=== PATIENT | male | born 1970 | race Caucasian/White ===

== ENCOUNTER 2017-12-24 14:19 | Emergency (ER) | payer OTHER, SELFPAY ==
[~2017-12-24] VITALS: Ht 170.2 cm; Wt 92.0 kg
[~2017-12-24 14:19] MED LIST: ANTIDEPRESSANT; BENZ1; CLON1 PO; HALO2; HYDACE5 PO; NAPR550 PO; QUET200; TRAZ100; VENL75
[2017-12-24 16:16] LABS: BASOPHILS ABSOLUTE AUTO 0.04 K/mm3 (0.00-0.23); BASOPHILS PERCENT AUTO 1 % (0-2); EOSINOPHILS PERCENT AUTO 3 % (0-6); Hemoglobin 9.9 g/dL (13.5-17.5); IMMATURE GRAN ABSOLUTE AUTO 0.17 K/mm3 (0.00-0.10); IMMATURE GRAN PERCENT AUTO 2 % (0-1); LYMPHOCYTES PERCENT AUTO 19 % (21-46); MONOCYTES ABSOLUTE AUTO 0.79 K/mm3 (0.16-1.47); MONOCYTES PERCENT AUTO 10 % (4-13); Mean Corpuscular HGB 25.8 pg (26.0-34.0); Mean Corpuscular HGB Conc 31.9 g/dL (31.5-36.5); Mean Corpuscular Volume 81 fL (80-100); NEUTROPHILS ABSOLUTE AUTO 5.17 K/mm3 (1.96-9.15); NEUTROPHILS PERCENT AUTO 66 % (41-73); Platelet Count 146 K/mm3 (150-400); RDW Coefficient Variation 18.1 % (11.7-14.2); RDW Standard Deviation 53.5 fL (35.1-46.3); Red Blood Cell Count 3.84 M/mm3 (4.30-5.90); White Blood Cell Count 7.87 K/mm3 (4.00-11.30)
[2017-12-24 16:38] LABS: Alanine Aminotransfer (ALT/SGP 16 U/L (12-78); Albumin, Blood 3.1 g/dL (3.4-5.0); Albumin/Globulin Ratio 0.7 (0.8-1.8); Alk Phos 226 U/L (50-136); Anion Gap 8 mmol/L (6-16); Aspartate Aminotrans (AST/SGOT 23 U/L (12-37); Bilirubin, Total 0.6 mg/dL (0.1-1.0); Blood Urea Nitrogen 6 mg/dL (8-24); CO2, Blood 22 mmol/L (21-32); Calcium, Blood 8.5 mg/dL (8.5-10.1); Chloride, Blood 110 mmol/L (98-108); Creatinine, Blood 0.75 mg/dL (0.60-1.20); Globulin, Blood 4.7 g/dL (2.2-4.0); Glomerular Filtration Rate >60 (60-); Glucose, Blood 109 mg/dL (70-99); Potassium, Blood 3.2 mmol/L (3.5-5.5); Sodium, Blood 140 mmol/L (136-145); Total Protein, Blood 7.8 g/dL (6.4-8.2)
[2017-12-24] MEDS ORDERED: FURO20 PO (17:39)
[2017-12-24] MEDS ORDERED: PRAV20 PO (17:40)
[2017-12-24] MEDS ORDERED: VENL150ER PO (17:40)
[2017-12-24] MEDS ORDERED: LISI20 PO (17:40)
[2017-12-24] MEDS ORDERED: Prilosec Otc20 MG (17:41)
[2017-12-24] MEDS ORDERED: Aspir-Trin325 MG PO (17:42)
== END 2017-12-24 20:07 | disposition home or self-care (01) ==
LOC: ER 14:19
PROVIDERS: Emergency Medicine
DX: K42.9 Umbilical hernia without obstruction or gangrene (principal); R18.8 Other ascites; F32.9 Major depressive disorder, single episode, unspecified; F20.9 Schizophrenia, unspecified; F17.210 Nicotine dependence, cigarettes, uncomplicated; Z79.899 Other long term (current) drug therapy
CPT/HCPCS: 36415; 74177; 76705; 80053; 83690; 85025; 93005; 93010; 99284; Q9967

== ENCOUNTER 2018-01-02 13:55 | Day surgery (SDC) | payer OTHER, SELFPAY ==
[~2018-01-02] VITALS: Ht 170.2 cm; Wt 93.0 kg
[~2018-01-02 13:55] MED LIST changes: +Aspir-Trin325 MG PO; +CLOZ100 PO; +DIPH50 PO; +FURO20 PO; +HYDPAM25 PO; +LISI20 PO; +Nitrostat0.3 MG SL; +PRAV20 PO; +Prilosec Otc20 MG PO; +TOPI50 PO; +VENL150ER PO
== END 2018-01-02 22:38 | disposition home or self-care (01) ==
LOC: ORSCMMR 13:55 → ORD 15:00 → ORSCMMR 15:00
PROVIDERS: Internal Medicine Gastroenterology
PROC: 06L38CZ Occlusion of Esophageal Vein with Extraluminal Device, Via Natural or Artificial Opening Endoscopic (ICD-10-PCS; principal; 2018-01-02 15:00)
DX: K70.31 Alcoholic cirrhosis of liver with ascites (principal); I85.00 Esophageal varices without bleeding; Z79.899 Other long term (current) drug therapy; Z86.19 Personal history of other infectious and parasitic diseases; I10 Essential (primary) hypertension; J45.909 Unspecified asthma, uncomplicated; F25.1 Schizoaffective disorder, depressive type; F17.210 Nicotine dependence, cigarettes, uncomplicated
CPT/HCPCS: J2250; J7120

== ENCOUNTER 2018-01-08 20:27 | Day surgery (SDC) | payer OTHER ==
[2018-01-08 10:49] LABS: International Normalized Ratio 1.2; Prothrombin Time Results 12.5 Sec (9.7-11.5)
[2018-01-08 13:08] LABS: Body Fluid WBC Count 520 /mm3 (0-999)
[2018-01-08 13:17] LABS: Albumin, Body Fluid 1.6 g/dL; Protein, Body Fluid 3.3 g/dL
[2018-01-08 13:28] LABS: RBC Count, Body Fluid 373 /mm3 (0-0)
[2018-01-08 13:34] LABS: Appearance, Body Fluid Hazy (Clear); Color, Body Fluid Yellow (None-Yellow)
[2018-01-08 15:36] LABS: Total Cell Count, Body Fluid 100
== END 2018-01-31 23:13 | disposition home or self-care (01) ==
LOC: US 20:27
PROVIDERS: Internal Medicine Gastroenterology
PROC: 0W9G3ZZ Drainage of Peritoneal Cavity, Percutaneous Approach (ICD-10-PCS; principal; 2018-01-08)
DX: K70.31 Alcoholic cirrhosis of liver with ascites (principal); K70.30 Alcoholic cirrhosis of liver without ascites
CPT/HCPCS: 36415; 49083; 76705; 82042; 84157; 85610; 85730; 87070; 87205; 88108; 89051

== ENCOUNTER 2018-02-05 00:42 | Day surgery (SDC) | payer OTHER, SELFPAY | END 2018-02-05 22:43 | disposition home or self-care (01) | LOC: US 00:42 → ATC 00:42 → US 15:00 → ATC 22:43 | PROC: 0W9G3ZZ Drainage of Peritoneal Cavity, Percutaneous Approach (ICD-10-PCS; principal; 2018-02-05) | DX: K70.31 Alcoholic cirrhosis of liver with ascites (principal) | CPT/HCPCS: 49083 ==

== ENCOUNTER 2018-03-21 12:44 | Inpatient (IN) | payer OTHER, SELFPAY ==
[~2018-03-21] VITALS: Ht 170.2 cm; Wt 78.4 kg
[~2018-03-21 12:44] MED LIST changes: +NADO40
[2018-03-21 13:15] LABS: BASOPHILS ABSOLUTE AUTO 0.04 K/mm3 (0.00-0.23); BASOPHILS PERCENT AUTO 1 % (0-2); EOSINOPHILS PERCENT AUTO 1 % (0-6); Hematocrit 30.9 % (37.0-53.0); Hemoglobin 10.3 g/dL (13.5-17.5); IMMATURE GRAN ABSOLUTE AUTO 0.08 K/mm3 (0.00-0.10); IMMATURE GRAN PERCENT AUTO 1 % (0-1); LYMPHOCYTES ABSOLUTE AUTO 1.42 K/mm3 (0.84-5.20); LYMPHOCYTES PERCENT AUTO 18 % (21-46); MONOCYTES ABSOLUTE AUTO 0.75 K/mm3 (0.16-1.47); MONOCYTES PERCENT AUTO 9 % (4-13); Mean Corpuscular HGB 25.8 pg (26.0-34.0); Mean Corpuscular HGB Conc 33.3 g/dL (31.5-36.5); Mean Corpuscular Volume 77 fL (80-100); Mean Platelet Volume 10.7 fL (9.1-12.4); NEUTROPHILS ABSOLUTE AUTO 5.74 K/mm3 (1.96-9.15); NEUTROPHILS PERCENT AUTO 71 % (41-73); Platelet Count 112 K/mm3 (150-400); RDW Coefficient Variation 18.9 % (11.7-14.2); RDW Standard Deviation 52.8 fL (35.1-46.3); Red Blood Cell Count 3.99 M/mm3 (4.30-5.90); White Blood Cell Count 8.13 K/mm3 (4.00-11.30)
[2018-03-21 13:43] LABS: Alanine Aminotransfer (ALT/SGP 26 U/L (12-78); Albumin, Blood 3.7 g/dL (3.4-5.0); Albumin/Globulin Ratio 0.8 (0.8-1.8); Alk Phos 179 U/L (50-136); Anion Gap 12 mmol/L (6-16); Aspartate Aminotrans (AST/SGOT 23 U/L (12-37); Bilirubin, Total 0.7 mg/dL (0.1-1.0); Blood Urea Nitrogen 32 mg/dL (8-24); Bun/Creatinine Ratio 13.3 (12.0-20.0); CO2, Blood 19 mmol/L (21-32); Calcium, Blood 8.8 mg/dL (8.5-10.1); Chloride, Blood 106 mmol/L (98-108); Creatinine, Blood 2.41 mg/dL (0.60-1.20); Globulin, Blood 4.6 g/dL (2.2-4.0); Glomerular Filtration Rate 31 (60-); Glucose, Blood 105 mg/dL (70-99); Sodium, Blood 137 mmol/L (136-145); Total Protein, Blood 8.3 g/dL (6.4-8.2); Troponin I <0.015 ng/mL (0.000-0.040)
[2018-03-21] MEDS ORDERED: LORA2 PO (15:35)
[2018-03-21] MEDS ORDERED: SPIR25 PO (15:36)
[2018-03-21 15:41] LABS: Thyroid Stimulating Hormone 0.429 uIU/mL (0.360-4.800)
[2018-03-21] MEDS ORDERED: CLOZAPINE PO (16:37)
[2018-03-22 03:59] LABS: International Normalized Ratio 1.21; Prothrombin Time Results 12.3 Sec (9.7-11.5)
[2018-03-22 04:14] LABS: Albumin, Blood 3.2 g/dL (3.4-5.0); Albumin/Globulin Ratio 0.9 (0.8-1.8); Bilirubin, Total 0.9 mg/dL (0.1-1.0); Bun/Creatinine Ratio 18.6 (12.0-20.0); Calcium, Blood 8.3 mg/dL (8.5-10.1); Creatinine, Blood 1.4 mg/dL (0.60-1.20); Globulin, Blood 3.6 g/dL (2.2-4.0); Potassium, Blood 3.1 mmol/L (3.5-5.5); Total Protein, Blood 6.8 g/dL (6.4-8.2)
[2018-03-23 04:21] LABS: Hematocrit 25.9 % (37.0-53.0); Hemoglobin 8.5 g/dL (13.5-17.5); Mean Corpuscular HGB 25.7 pg (26.0-34.0); Mean Corpuscular HGB Conc 32.8 g/dL (31.5-36.5); Mean Corpuscular Volume 78 fL (80-100); Platelet Count 94 K/mm3 (150-400); RDW Coefficient Variation 19.3 % (11.7-14.2); RDW Standard Deviation 54.5 fL (35.1-46.3); Red Blood Cell Count 3.31 M/mm3 (4.30-5.90); White Blood Cell Count 9.34 K/mm3 (4.00-11.30)
[2018-03-23 04:45] LABS: BAND PERCENT MAN 4 % (0-8); BASOPHILS PERCENT MAN 0 % (0-2); EOSINOPHILS ABSOLUTE MAN 0.09 K/mm3 (0.00-0.68); EOSINOPHILS PERCENT MAN 1 % (0-6); LYMPHOCYTES ABSOLUTE MAN 1.02 K/mm3 (0.84-5.20); LYMPHOCYTES PERCENT MAN 11 % (21-46); MONOCYTES ABSOLUTE MAN 0.56 K/mm3 (0.16-1.47); MONOCYTES PERCENT MAN 6 % (4-13); MYELOCYTE ABSOLUTE MAN 0.09 K/mm3 (0.00-0.00); MYELOCYTE PERCENT MAN 1 % (0-0); NEUTROPHILS ABSOLUTE MAN 7.56 K/mm3 (1.96-9.15); SEG NEUTROPHILS PERCENT MAN 77 % (41-73); TOTAL CELLS COUNTED 100
[2018-03-23 04:46] LABS: Magnesium, Blood 1.5 mg/dL (1.6-2.4)
[2018-03-23 04:47] LABS: Alanine Aminotransfer (ALT/SGP 14 U/L (12-78); Albumin, Blood 2.9 g/dL (3.4-5.0); Albumin/Globulin Ratio 0.7 (0.8-1.8); Alk Phos 138 U/L (50-136); Anion Gap 8 mmol/L (6-16); Aspartate Aminotrans (AST/SGOT 18 U/L (12-37); Bilirubin, Total 0.7 mg/dL (0.1-1.0); Blood Urea Nitrogen 18 mg/dL (8-24); Bun/Creatinine Ratio 16.4 (12.0-20.0); CO2, Blood 22 mmol/L (21-32); Calcium, Blood 8.7 mg/dL (8.5-10.1); Chloride, Blood 113 mmol/L (98-108); Glomerular Filtration Rate >60 (60-); Glucose, Blood 125 mg/dL (70-99); Potassium, Blood 4.3 mmol/L (3.5-5.5); Sodium, Blood 143 mmol/L (136-145); Total Protein, Blood 6.9 g/dL (6.4-8.2)
[2018-03-23] MEDS ORDERED: Tylenol325 MG PO (12:28)
[2018-03-23] MEDS ORDERED: BISA5EC PO (12:29)
[2018-03-23] MEDS ORDERED: Hydrocodone-Ap1 EA20 PO (12:30)
[2018-03-23] MEDS ORDERED: POTA10T PO (12:31)
[2018-03-23] MEDS ORDERED: XARELTO10 MG PO (12:33)
[2018-03-23] MEDS ORDERED: CEPH500 PO (12:51)
[2018-03-25 14:15] LABS: A/G RATIO 1.1 (0.7-1.7); ALBUMIN 3.9 g/dL (2.9-4.4); ALPHA-1-GLOBULIN 0.2 g/dL (0.0-0.4); ALPHA-2-GLOBULIN 0.6 g/dL (0.4-1.0); GAMMA GLOBULIN 1.7 g/dL (0.4-1.8); GLOBULIN, TOTAL 3.6 g/dL (2.2-3.9); M-SPIKE Not Observed g/dL (Not Observed); PROTEIN, TOTAL, SERUM 7.5 g/dL (6.0-8.5)
== END 2018-03-23 15:03 | disposition home or self-care (01) | DRG 493 ==
LOC: ER 12:44 → MEDS 15:10 → SURS 15:10
PROVIDERS: Emergency Medicine; Internal Medicine; Orthopaedic Surgery
PROC: 0QSJ04Z Reposition Right Fibula with Internal Fixation Device, Open Approach (ICD-10-PCS; 2018-03-22)
PROC: 0QSG04Z Reposition Right Tibia with Internal Fixation Device, Open Approach (ICD-10-PCS; principal; 2018-03-22 12:30)
DX: S82.391A Other fracture of lower end of right tibia, initial encounter for closed fracture (principal); N17.9 Acute kidney failure, unspecified; I85.10 Secondary esophageal varices without bleeding; S82.491A Other fracture of shaft of right fibula, initial encounter for closed fracture; K70.30 Alcoholic cirrhosis of liver without ascites; I10 Essential (primary) hypertension; F25.9 Schizoaffective disorder, unspecified; B18.2 Chronic viral hepatitis C; D69.6 Thrombocytopenia, unspecified; F32.9 Major depressive disorder, single episode, unspecified; J45.909 Unspecified asthma, uncomplicated; E78.5 Hyperlipidemia, unspecified; W19.XXXA Unspecified fall, initial encounter; F17.210 Nicotine dependence, cigarettes, uncomplicated
CPT/HCPCS: 29515; 36415; 73610; 76770; 80053; 83735; 84132; 84443; 84484; 85025; 85610; 93005; 93010; 94762; 96361; 96374; 96376; 97116; 97161; 97530; 99285; C1713; C9113; G8978; G8979; J0330; J0690; J1100; J1650; J2250; J2370; J2405; J2710; J3010; J3370; J3475; J3480; J7030; J7120

== ENCOUNTER 2018-05-10 13:37 | Day surgery (SDC) | payer OTHER, SELFPAY ==
[~2018-05-10 13:37] MED LIST changes: +BISA5EC PO; +CEPH500 PO; +CIPR500 PO; +CLOZAPINE PO; +FOLI1 PO; +Hydrocodone-Ap1 EA20 PO; +LACT10SY PO; +LORA2 PO; +NEOM500 PO; +NICO21TP TOP; +OLAN5 PO; +OXYC5 PO; +POTA10T PO; +SPIR25 PO; +THIA100 PO; +Tylenol325 MG PO; +XARELTO10 MG PO
== END 2018-05-10 22:48 | disposition home or self-care (01) ==
LOC: US 13:37
PROC: 0W9G3ZZ Drainage of Peritoneal Cavity, Percutaneous Approach (ICD-10-PCS; principal; 2018-05-10)
DX: K70.31 Alcoholic cirrhosis of liver with ascites (principal)
CPT/HCPCS: 49083

== ENCOUNTER 2018-05-28 09:46 | Day surgery (SDC) | payer OTHER ==
[~2018-05-28 09:46] MED LIST changes: +RISP1
== END 2018-05-28 22:59 | disposition home or self-care (01) ==
LOC: US 09:46
PROC: 0W9G3ZZ Drainage of Peritoneal Cavity, Percutaneous Approach (ICD-10-PCS; principal; 2018-05-28)
DX: K70.31 Alcoholic cirrhosis of liver with ascites (principal); K70.11 Alcoholic hepatitis with ascites
CPT/HCPCS: 49083

== ENCOUNTER 2018-07-17 08:50 | Day surgery (SDC) | payer OTHER ==
[~2018-07-17 08:50] MED LIST changes: -RISP1; +RISP1 PO
== END 2018-07-17 12:09 | disposition home or self-care (01) ==
LOC: US 08:50
PROC: 0W9G3ZZ Drainage of Peritoneal Cavity, Percutaneous Approach (ICD-10-PCS; principal; 2018-07-17)
DX: K70.11 Alcoholic hepatitis with ascites (principal)
CPT/HCPCS: 49083; 96365; P9041

== ENCOUNTER 2018-07-18 13:57 | Inpatient (IN) | payer OTHER ==
[~2018-07-18] VITALS: Ht 170.2 cm; Wt 77.1 kg
[2018-07-18 14:56] LABS: BASOPHILS ABSOLUTE AUTO 0.02 K/mm3 (0.00-0.23); BASOPHILS PERCENT AUTO 0 % (0-2); EOSINOPHILS ABSOLUTE AUTO 0.11 K/mm3 (0.00-0.68); EOSINOPHILS PERCENT AUTO 1 % (0-6); Hematocrit 32.1 % (37.0-53.0); Hemoglobin 9.9 g/dL (13.5-17.5); IMMATURE GRAN PERCENT AUTO 1 % (0-1); LYMPHOCYTES PERCENT AUTO 11 % (21-46); MONOCYTES ABSOLUTE AUTO 1.18 K/mm3 (0.16-1.47); MONOCYTES PERCENT AUTO 9 % (4-13); Mean Corpuscular HGB 23.6 pg (26.0-34.0); Mean Corpuscular HGB Conc 30.8 g/dL (31.5-36.5); Mean Corpuscular Volume 76 fL (80-100); Mean Platelet Volume 10.3 fL (9.1-12.4); NEUTROPHILS PERCENT AUTO 78 % (41-73); Platelet Count 146 K/mm3 (150-400); RDW Coefficient Variation 17.9 % (11.7-14.2); RDW Standard Deviation 49.3 fL (35.1-46.3); White Blood Cell Count 13.31 K/mm3 (4.00-11.30)
[2018-07-18 15:13] LABS: Alanine Aminotransfer (ALT/SGP 15 U/L (12-78); Albumin, Blood 3.1 g/dL (3.4-5.0); Albumin/Globulin Ratio 0.8 (0.8-1.8); Alk Phos 180 U/L (50-136); Anion Gap 12 mmol/L (6-16); Aspartate Aminotrans (AST/SGOT 16 U/L (12-37); Bilirubin, Total 0.7 mg/dL (0.1-1.0); Blood Urea Nitrogen 8 mg/dL (8-24); CO2, Blood 20 mmol/L (21-32); Calcium, Blood 8.3 mg/dL (8.5-10.1); Chloride, Blood 105 mmol/L (98-108); Creatinine, Blood 0.89 mg/dL (0.60-1.20); Globulin, Blood 3.7 g/dL (2.2-4.0); Glomerular Filtration Rate >60 (60-); Glucose, Blood 108 mg/dL (70-99); Potassium, Blood 3.4 mmol/L (3.5-5.5); Sodium, Blood 137 mmol/L (136-145); Total Protein, Blood 6.8 g/dL (6.4-8.2)
[2018-07-18 15:19] LABS: Troponin I <0.015 ng/mL (0.000-0.040)
[2018-07-19 05:11] LABS: BASOPHILS ABSOLUTE AUTO 0.03 K/mm3 (0.00-0.23); BASOPHILS PERCENT AUTO 0 % (0-2); EOSINOPHILS ABSOLUTE AUTO 0.11 K/mm3 (0.00-0.68); EOSINOPHILS PERCENT AUTO 2 % (0-6); Hematocrit 29.9 % (37.0-53.0); Hemoglobin 9.4 g/dL (13.5-17.5); IMMATURE GRAN ABSOLUTE AUTO 0.06 K/mm3 (0.00-0.10); IMMATURE GRAN PERCENT AUTO 1 % (0-1); LYMPHOCYTES ABSOLUTE AUTO 1.14 K/mm3 (0.84-5.20); LYMPHOCYTES PERCENT AUTO 15 % (21-46); MONOCYTES ABSOLUTE AUTO 0.91 K/mm3 (0.16-1.47); MONOCYTES PERCENT AUTO 12 % (4-13); Mean Corpuscular HGB Conc 31.4 g/dL (31.5-36.5); Mean Corpuscular Volume 77 fL (80-100); Mean Platelet Volume 9.4 fL (9.1-12.4); NEUTROPHILS PERCENT AUTO 70 % (41-73); Platelet Count 123 K/mm3 (150-400); RDW Coefficient Variation 17.6 % (11.7-14.2); RDW Standard Deviation 49.1 fL (35.1-46.3); Red Blood Cell Count 3.91 M/mm3 (4.30-5.90); White Blood Cell Count 7.55 K/mm3 (4.00-11.30)
[2018-07-19 05:21] LABS: International Normalized Ratio 1.09; Prothrombin Time Results 11.2 Sec (9.7-11.5)
[2018-07-19 05:39] LABS: Alanine Aminotransfer (ALT/SGP 13 U/L (12-78); Albumin, Blood 2.8 g/dL (3.4-5.0); Albumin/Globulin Ratio 0.8 (0.8-1.8); Alk Phos 156 U/L (50-136); Anion Gap 11 mmol/L (6-16); Aspartate Aminotrans (AST/SGOT 12 U/L (12-37); Bilirubin, Total 0.7 mg/dL (0.1-1.0); Blood Urea Nitrogen 10 mg/dL (8-24); Bun/Creatinine Ratio 12.5 (12.0-20.0); CO2, Blood 20 mmol/L (21-32); Calcium, Blood 8.1 mg/dL (8.5-10.1); Chloride, Blood 106 mmol/L (98-108); Globulin, Blood 3.4 g/dL (2.2-4.0); Glomerular Filtration Rate >60 (60-); Glucose, Blood 111 mg/dL (70-99); Sodium, Blood 137 mmol/L (136-145); Total Protein, Blood 6.2 g/dL (6.4-8.2)
[2018-07-19 12:16] LABS: Protein, Body Fluid 2.4 g/dL
[2018-07-19 12:17] LABS: Automated BF WBC Count 0.354 K/mm3 (0-999); Body Fluid WBC Count 354 /mm3 (0-999)
[2018-07-19 12:26] LABS: Appearance, Body Fluid Clear (Clear); Color, Body Fluid Yellow (None-Yellow)
[2018-07-19 12:50] LABS: Total Cell Count, Body Fluid 100
[2018-07-19 13:46] LABS: RBC Count, Body Fluid 437 /mm3 (0-0)
[2018-07-19 14:43] LABS: Adenovirus F 40/41 Not Detected (NOT DETECT); Astrovirus Not Detected (NOT DETECT); Campylobacter Sp Not Detected (NOT DETECT); Cryptosporidium Not Detected (NOT DETECT); Cyclospora Cayetanensis Not Detected (NOT DETECT); E. Coli O157 Not Detected (NOT DETECT); Entamoeba Histolytica Not Detected (NOT DETECT); Enteroaggregative E. coli-EAEC Not Detected (NOT DETECT); Enteropathogenic E. coli-EPEC Not Detected (NOT DETECT); Enterotoxigenic E. coli-ETEC Not Detected (NOT DETECT); Norovirus GI/GII Not Detected (NOT DETECT); Plesiomonas Shigelloides Not Detected (NOT DETECT); Rotavirus A Not Detected (NOT DETECT); Salmonella Sp Not Detected (NOT DETECT); Sapovirus Not Detected (NOT DETECT); Shiga Toxin-prod E. coli-STEC Not Detected (NOT DETECT); Shigella/Enteroin E. coli-EIEC Not Detected (NOT DETECT); Vibrio Cholerae Not Detected (NOT DETECT); Vibrio Sp Not Detected (NOT DETECT); Yersinia Enterocolitica Not Detected (NOT DETECT)
[2018-07-19 16:42] LABS: Giardia Lamblia Detected (NOT DETECT)
[2018-07-20 05:20] LABS: BASOPHILS ABSOLUTE AUTO 0.02 K/mm3 (0.00-0.23); BASOPHILS PERCENT AUTO 0 % (0-2); EOSINOPHILS ABSOLUTE AUTO 0.12 K/mm3 (0.00-0.68); EOSINOPHILS PERCENT AUTO 2 % (0-6); Hematocrit 30.3 % (37.0-53.0); Hemoglobin 9.4 g/dL (13.5-17.5); IMMATURE GRAN ABSOLUTE AUTO 0.05 K/mm3 (0.00-0.10); IMMATURE GRAN PERCENT AUTO 1 % (0-1); LYMPHOCYTES ABSOLUTE AUTO 1.13 K/mm3 (0.84-5.20); LYMPHOCYTES PERCENT AUTO 15 % (21-46); MONOCYTES ABSOLUTE AUTO 0.84 K/mm3 (0.16-1.47); MONOCYTES PERCENT AUTO 11 % (4-13); Mean Corpuscular HGB 23.5 pg (26.0-34.0); Mean Corpuscular Volume 76 fL (80-100); Mean Platelet Volume 10.5 fL (9.1-12.4); NEUTROPHILS ABSOLUTE AUTO 5.51 K/mm3 (1.96-9.15); NEUTROPHILS PERCENT AUTO 72 % (41-73); Platelet Count 131 K/mm3 (150-400); RDW Coefficient Variation 17.3 % (11.7-14.2); RDW Standard Deviation 47.1 fL (35.1-46.3); White Blood Cell Count 7.67 K/mm3 (4.00-11.30)
[2018-07-20 05:45] LABS: Alanine Aminotransfer (ALT/SGP 12 U/L (12-78); Albumin, Blood 2.7 g/dL (3.4-5.0); Albumin/Globulin Ratio 0.8 (0.8-1.8); Alk Phos 150 U/L (50-136); Anion Gap 8 mmol/L (6-16); Aspartate Aminotrans (AST/SGOT 11 U/L (12-37); Bilirubin, Total 0.4 mg/dL (0.1-1.0); Blood Urea Nitrogen 9 mg/dL (8-24); Bun/Creatinine Ratio 12.1 (12.0-20.0); CO2, Blood 25 mmol/L (21-32); Calcium, Blood 8.1 mg/dL (8.5-10.1); Chloride, Blood 101 mmol/L (98-108); Creatinine, Blood 0.74 mg/dL (0.60-1.20); Globulin, Blood 3.5 g/dL (2.2-4.0); Glomerular Filtration Rate >60 (60-); Glucose, Blood 97 mg/dL (70-99); Potassium, Blood 3.6 mmol/L (3.5-5.5); Sodium, Blood 134 mmol/L (136-145); Total Protein, Blood 6.2 g/dL (6.4-8.2)
[2018-07-21 05:21] LABS: BASOPHILS ABSOLUTE AUTO 0.03 K/mm3 (0.00-0.23); BASOPHILS PERCENT AUTO 0 % (0-2); EOSINOPHILS ABSOLUTE AUTO 0.16 K/mm3 (0.00-0.68); EOSINOPHILS PERCENT AUTO 2 % (0-6); Hematocrit 29.9 % (37.0-53.0); Hemoglobin 9.4 g/dL (13.5-17.5); IMMATURE GRAN ABSOLUTE AUTO 0.07 K/mm3 (0.00-0.10); IMMATURE GRAN PERCENT AUTO 1 % (0-1); LYMPHOCYTES ABSOLUTE AUTO 1.41 K/mm3 (0.84-5.20); LYMPHOCYTES PERCENT AUTO 19 % (21-46); MONOCYTES ABSOLUTE AUTO 0.92 K/mm3 (0.16-1.47); MONOCYTES PERCENT AUTO 12 % (4-13); Mean Corpuscular HGB 23.5 pg (26.0-34.0); Mean Corpuscular HGB Conc 31.4 g/dL (31.5-36.5); Mean Corpuscular Volume 75 fL (80-100); Mean Platelet Volume 9.7 fL (9.1-12.4); NEUTROPHILS ABSOLUTE AUTO 4.82 K/mm3 (1.96-9.15); NEUTROPHILS PERCENT AUTO 65 % (41-73); Platelet Count 122 K/mm3 (150-400); RDW Coefficient Variation 16.9 % (11.7-14.2); RDW Standard Deviation 45.5 fL (35.1-46.3); White Blood Cell Count 7.41 K/mm3 (4.00-11.30)
[2018-07-21 05:45] LABS: Alanine Aminotransfer (ALT/SGP 13 U/L (12-78); Albumin, Blood 2.6 g/dL (3.4-5.0); Albumin/Globulin Ratio 0.7 (0.8-1.8); Alk Phos 151 U/L (50-136); Anion Gap 7 mmol/L (6-16); Aspartate Aminotrans (AST/SGOT 15 U/L (12-37); Bilirubin, Total 0.4 mg/dL (0.1-1.0); Blood Urea Nitrogen 10 mg/dL (8-24); CO2, Blood 28 mmol/L (21-32); Chloride, Blood 96 mmol/L (98-108); Creatinine, Blood 0.77 mg/dL (0.60-1.20); Globulin, Blood 3.5 g/dL (2.2-4.0); Glomerular Filtration Rate >60 (60-); Glucose, Blood 97 mg/dL (70-99); Potassium, Blood 3.3 mmol/L (3.5-5.5); Sodium, Blood 131 mmol/L (136-145); Total Protein, Blood 6.1 g/dL (6.4-8.2)
[2018-07-21] MEDS ORDERED: NADO40 PO (12:50)
[2018-07-21] MEDS ORDERED: METR500 PO (12:50)
[2018-07-21] MEDS ORDERED: ONDA4ODT MM (12:51)
[2018-07-21] MEDS ORDERED: OXYC5 PO (12:53)
== END 2018-07-21 13:07 | disposition home or self-care (01) | DRG 372 ==
LOC: ER 13:57 → MEDS 18:35
PROVIDERS: Emergency Medicine; Family Medicine; Nurse Practitioner Acute Care
PROC: 3E02340 Introduction of Influenza Vaccine into Muscle, Percutaneous Approach (ICD-10-PCS; 2018-07-18)
PROC: 0W9G3ZX Drainage of Peritoneal Cavity, Percutaneous Approach, Diagnostic (ICD-10-PCS; principal; 2018-07-19)
DX: K65.2 Spontaneous bacterial peritonitis (principal); A04.72 Enterocolitis due to Clostridium difficile, not specified as recurrent; I85.00 Esophageal varices without bleeding; K76.6 Portal hypertension; E87.1 Hypo-osmolality and hyponatremia; A07.1 Giardiasis [lambliasis]; D69.6 Thrombocytopenia, unspecified; E88.09 Other disorders of plasma-protein metabolism, not elsewhere classified; F25.9 Schizoaffective disorder, unspecified; K70.31 Alcoholic cirrhosis of liver with ascites; K70.40 Alcoholic hepatic failure without coma; B19.20 Unspecified viral hepatitis C without hepatic coma; D72.829 Elevated white blood cell count, unspecified; I10 Essential (primary) hypertension; M19.90 Unspecified osteoarthritis, unspecified site; F17.210 Nicotine dependence, cigarettes, uncomplicated; K52.9 Noninfective gastroenteritis and colitis, unspecified; D50.9 Iron deficiency anemia, unspecified; E87.6 Hypokalemia; Z79.899 Other long term (current) drug therapy; Z23 Encounter for immunization
CPT/HCPCS: 36415; 49083; 71046; 74177; 80053; 83605; 83690; 83735; 83880; 84157; 84484; 85025; 85610; 87507; 89051; 90686; 93005; 93010; J0696; J1170; J2405; J3010; J7030; J7050; Q9967

== ENCOUNTER → 2018-08-29 | Outpatient (CLI) | payer OTHER ==
[~2018-08-29] MED LIST changes: +METR500 PO; +NADO40 PO; +ONDA4ODT MM
[2018-08-30 11:30] LABS: Adenovirus F 40/41 Not Detected (NOT DETECT); Astrovirus Not Detected (NOT DETECT); Campylobacter Sp Not Detected (NOT DETECT); Cryptosporidium Not Detected (NOT DETECT); Cyclospora Cayetanensis Not Detected (NOT DETECT); E. Coli O157 Not Detected (NOT DETECT); Entamoeba Histolytica Not Detected (NOT DETECT); Enteroaggregative E. coli-EAEC Not Detected (NOT DETECT); Enteropathogenic E. coli-EPEC Not Detected (NOT DETECT); Enterotoxigenic E. coli-ETEC Not Detected (NOT DETECT); Giardia Lamblia Not Detected (NOT DETECT); Norovirus GI/GII Not Detected (NOT DETECT); Plesiomonas Shigelloides Not Detected (NOT DETECT); Rotavirus A Not Detected (NOT DETECT); Salmonella Sp Not Detected (NOT DETECT); Sapovirus Not Detected (NOT DETECT); Shiga Toxin-prod E. coli-STEC Not Detected (NOT DETECT); Shigella/Enteroin E. coli-EIEC Not Detected (NOT DETECT); Vibrio Cholerae Not Detected (NOT DETECT); Vibrio Sp Not Detected (NOT DETECT); Yersinia Enterocolitica Not Detected (NOT DETECT)
== END | disposition home or self-care (01) ==
LOC: LAB SHORT 16:30 → LAB 16:30
PROVIDERS: Internal Medicine Gastroenterology
DX: K74.60 Unspecified cirrhosis of liver (principal)
CPT/HCPCS: 87507

== ENCOUNTER 2018-09-27 08:26 | Day surgery (SDC) | payer OTHER ==
[2018-09-27] MEDS ORDERED: ACET325 PO (10:40)
== END 2018-09-27 11:33 | disposition home or self-care (01) ==
LOC: US 08:26 → ATC 08:26 → US 09:00 → ATC 11:33
DX: K70.11 Alcoholic hepatitis with ascites (principal); K74.60 Unspecified cirrhosis of liver
CPT/HCPCS: 49083; 96365; P9046

== ENCOUNTER 2018-10-08 14:04 | Day surgery (SDC) | payer OTHER ==
[~2018-10-08 14:04] MED LIST changes: +ACET325 PO
== END 2018-10-08 23:15 | disposition home or self-care (01) ==
LOC: US 14:04
DX: R18.8 Other ascites (principal); K74.60 Unspecified cirrhosis of liver
CPT/HCPCS: 49083

== ENCOUNTER 2018-10-25 09:25 | Day surgery (SDC) | payer OTHER | END 2018-10-25 14:46 | disposition home or self-care (01) | LOC: ATC 09:25 → US 09:25 → ATC 14:46 | PROC: 0W9G3ZZ Drainage of Peritoneal Cavity, Percutaneous Approach (ICD-10-PCS; principal; 2018-10-25) | DX: K70.11 Alcoholic hepatitis with ascites (principal); K74.60 Unspecified cirrhosis of liver | CPT/HCPCS: 49083; 96365; P9046 ==

== ENCOUNTER 2018-11-07 13:31 | Day surgery (SDC) | payer OTHER | END 2018-11-07 22:46 | disposition home or self-care (01) | LOC: US 13:31 | DX: R18.8 Other ascites (principal); K74.60 Unspecified cirrhosis of liver | CPT/HCPCS: 49083 ==

== ENCOUNTER 2018-11-21 04:11 | Day surgery (SDC) | payer OTHER | END 2018-11-21 12:00 | disposition home or self-care (01) | LOC: US 04:11 | DX: K70.11 Alcoholic hepatitis with ascites (principal); K70.31 Alcoholic cirrhosis of liver with ascites; F25.9 Schizoaffective disorder, unspecified; I10 Essential (primary) hypertension; M19.90 Unspecified osteoarthritis, unspecified site; J45.909 Unspecified asthma, uncomplicated; Z79.899 Other long term (current) drug therapy; Z88.6 Allergy status to analgesic agent; Z87.891 Personal history of nicotine dependence ==

== ENCOUNTER 2018-11-26 16:23 | Day surgery (SDC) | payer OTHER | END 2018-11-26 17:55 | disposition home or self-care (01) | LOC: ATC 16:23 | DX: K70.31 Alcoholic cirrhosis of liver with ascites (principal); K70.11 Alcoholic hepatitis with ascites; Z88.6 Allergy status to analgesic agent; F25.9 Schizoaffective disorder, unspecified; I10 Essential (primary) hypertension; M19.90 Unspecified osteoarthritis, unspecified site; J45.909 Unspecified asthma, uncomplicated; Z79.899 Other long term (current) drug therapy; Z87.891 Personal history of nicotine dependence | CPT/HCPCS: 49083; 96365; P9041; P9046 ==

== ENCOUNTER 2018-12-05 13:04 | Day surgery (SDC) | payer OTHER ==
[~2018-12-05 13:04] MED LIST changes: +Aldactone100 MG PO; +Ativan1 MG PO; +B-1100 MG PO; +BENADRYL25 MG PO; +FURO40 PO; +LACTULOSE20 GM/30 M PO; +Omeprazole20 M1 PO; +POTCHL10ER PO; +Pravachol40 MG PO; +RISP2 PO; +Venlafaxine HC150 MG PO
[2018-12-05 13:26] LABS: BASOPHILS ABSOLUTE AUTO 0.03 K/mm3 (0.00-0.23); BASOPHILS PERCENT AUTO 0 % (0-2); EOSINOPHILS ABSOLUTE AUTO 0.09 K/mm3 (0.00-0.68); EOSINOPHILS PERCENT AUTO 1 % (0-6); Hematocrit 31.9 % (37.0-53.0); Hemoglobin 9.3 g/dL (13.5-17.5); IMMATURE GRAN ABSOLUTE AUTO 0.18 K/mm3 (0.00-0.10); IMMATURE GRAN PERCENT AUTO 3 % (0-1); LYMPHOCYTES ABSOLUTE AUTO 1.04 K/mm3 (0.84-5.20); LYMPHOCYTES PERCENT AUTO 16 % (21-46); MONOCYTES ABSOLUTE AUTO 0.79 K/mm3 (0.16-1.47); MONOCYTES PERCENT AUTO 12 % (4-13); Mean Corpuscular HGB 20.5 pg (26.0-34.0); Mean Corpuscular HGB Conc 29.2 g/dL (31.5-36.5); Mean Corpuscular Volume 70 fL (80-100); NEUTROPHILS ABSOLUTE AUTO 4.54 K/mm3 (1.96-9.15); NEUTROPHILS PERCENT AUTO 68 % (41-73); Platelet Count 84 K/mm3 (150-400); RDW Coefficient Variation 16.1 % (11.7-14.2); RDW Standard Deviation 40.9 fL (35.1-46.3); Red Blood Cell Count 4.53 M/mm3 (4.30-5.90); White Blood Cell Count 6.67 K/mm3 (4.00-11.30)
[2018-12-05 13:48] LABS: International Normalized Ratio 1.11; Prothrombin Time Results 11.7 Sec (9.7-11.5)
[2018-12-05 13:59] LABS: Alanine Aminotransfer (ALT/SGP 27 U/L (12-78); Albumin, Blood 3.2 g/dL (3.4-5.0); Albumin/Globulin Ratio 0.7 (0.8-1.8); Alk Phos 225 U/L (50-136); Anion Gap 5 mmol/L (6-16); Aspartate Aminotrans (AST/SGOT 24 U/L (12-37); Bilirubin, Total 0.7 mg/dL (0.1-1.0); Blood Urea Nitrogen 11 mg/dL (8-24); Bun/Creatinine Ratio 14.8 (12.0-20.0); CO2, Blood 27 mmol/L (21-32); Calcium, Blood 8.5 mg/dL (8.5-10.1); Chloride, Blood 104 mmol/L (98-108); Creatinine, Blood 0.74 mg/dL (0.60-1.20); Globulin, Blood 4.5 g/dL (2.2-4.0); Glomerular Filtration Rate >60 (60-); Glucose, Blood 112 mg/dL (70-99); Potassium, Blood 3.3 mmol/L (3.5-5.5); Sodium, Blood 136 mmol/L (136-145); Total Protein, Blood 7.7 g/dL (6.4-8.2)
== END 2018-12-05 14:00 ==
LOC: US 13:04
PROVIDERS: Internal Medicine Gastroenterology
DX: K74.60 Unspecified cirrhosis of liver (principal); R18.8 Other ascites
CPT/HCPCS: 36415; 49083; 80053; 85025; 85610; 85730

== ENCOUNTER 2018-12-10 08:35 | Day surgery (SDC) | payer OTHER ==
[~2018-12-10] VITALS: Ht 170.2 cm; Wt 87.8 kg
== END 2018-12-10 10:15 | disposition home or self-care (01) ==
LOC: ORSCSDS 08:35
PROVIDERS: Internal Medicine Gastroenterology
PROC: 0DJ08ZZ Inspection of Upper Intestinal Tract, Via Natural or Artificial Opening Endoscopic (ICD-10-PCS; principal; 2018-12-10 10:00)
DX: I85.00 Esophageal varices without bleeding (principal); K76.6 Portal hypertension; K31.89 Other diseases of stomach and duodenum; F25.9 Schizoaffective disorder, unspecified; K74.60 Unspecified cirrhosis of liver; F17.210 Nicotine dependence, cigarettes, uncomplicated; E66.9 Obesity, unspecified; Z68.33 Body mass index [BMI] 33.0-33.9, adult; D69.6 Thrombocytopenia, unspecified; E87.1 Hypo-osmolality and hyponatremia; Z79.899 Other long term (current) drug therapy
CPT/HCPCS: J7120

== ENCOUNTER 2018-12-19 13:24 | Day surgery (SDC) | payer OTHER | END 2018-12-19 22:48 | disposition home or self-care (01) | LOC: US 13:24 | DX: K74.60 Unspecified cirrhosis of liver (principal); R18.8 Other ascites | CPT/HCPCS: 49083 ==

== ENCOUNTER 2018-12-20 00:36 | Day surgery (SDC) | payer OTHER | END 2018-12-20 23:09 | disposition home or self-care (01) | LOC: ATC 00:36 | DX: K74.60 Unspecified cirrhosis of liver (principal); R18.8 Other ascites ==

== ENCOUNTER 2019-01-02 00:06 | Day surgery (SDC) | payer OTHER | END 2019-01-02 23:38 | disposition home or self-care (01) | LOC: US 00:06 | DX: K74.60 Unspecified cirrhosis of liver (principal); R18.8 Other ascites | CPT/HCPCS: 76705 ==

== ENCOUNTER 2019-01-16 13:29 | Day surgery (SDC) | payer OTHER | END 2019-01-16 22:49 | disposition home or self-care (01) | LOC: US 13:29 | DX: K74.60 Unspecified cirrhosis of liver (principal); R18.8 Other ascites | CPT/HCPCS: 49083 ==

== ENCOUNTER 2019-01-30 13:14 | Day surgery (SDC) | payer OTHER | END 2019-01-30 22:52 | disposition home or self-care (01) | LOC: US 13:14 | DX: K74.60 Unspecified cirrhosis of liver (principal); R18.8 Other ascites | CPT/HCPCS: 49083 ==

== ENCOUNTER → 2019-02-06 | Outpatient (CLI) | payer OTHER ==
[2019-02-06 14:45] LABS: Protein, Urine Random 25.9 mg/dL (0.0-11.9)
== END | disposition home or self-care (01) ==
LOC: LAB SHORT 13:49 → LAB 13:49
PROVIDERS: Internal Medicine
DX: N17.9 Acute kidney failure, unspecified (principal)
CPT/HCPCS: 82570; 84156

== ENCOUNTER 2019-02-27 00:37 | Day surgery (SDC) | payer OTHER, SELFPAY ==
[2019-02-27 13:40] LABS: Anion Gap 7 mmol/L (6-16); Blood Urea Nitrogen 9 mg/dL (8-24); Bun/Creatinine Ratio 8.3 (12.0-20.0); CO2, Blood 27 mmol/L (21-32); Calcium, Blood 8.6 mg/dL (8.5-10.1); Chloride, Blood 101 mmol/L (98-108); Creatinine, Blood 1.08 mg/dL (0.60-1.20); Glomerular Filtration Rate >60 (60-); Glucose, Blood 133 mg/dL (70-99); Potassium, Blood 3.7 mmol/L (3.5-5.5); Sodium, Blood 135 mmol/L (136-145)
== END 2019-02-27 23:28 | disposition home or self-care (01) ==
LOC: US 00:37 → LAB 00:37 → US 14:00
PROVIDERS: Internal Medicine Gastroenterology
DX: K70.31 Alcoholic cirrhosis of liver with ascites (principal); I10 Essential (primary) hypertension; J45.909 Unspecified asthma, uncomplicated; E78.5 Hyperlipidemia, unspecified
CPT/HCPCS: 36415; 49083; 80048

== ENCOUNTER 2019-03-27 12:26 | Day surgery (SDC) | payer OTHER, SELFPAY | END 2019-03-27 23:01 | disposition home or self-care (01) | LOC: US 12:26 | DX: R18.8 Other ascites (principal); K74.60 Unspecified cirrhosis of liver | CPT/HCPCS: 36415; 49083; 85730 ==

== ENCOUNTER 2019-05-02 08:44 | Day surgery (SDC) | payer OTHER | END 2019-05-03 00:22 | disposition home or self-care (01) | LOC: US 08:44 | DX: K74.60 Unspecified cirrhosis of liver (principal); R18.8 Other ascites | CPT/HCPCS: 49083 ==

== ENCOUNTER 2019-06-02 14:02 | Day surgery (SDC) | payer OTHER | END 2019-06-02 22:59 | disposition home or self-care (01) | LOC: US 14:02 | DX: K70.31 Alcoholic cirrhosis of liver with ascites (principal); I10 Essential (primary) hypertension; F32.9 Major depressive disorder, single episode, unspecified; E78.5 Hyperlipidemia, unspecified; F17.210 Nicotine dependence, cigarettes, uncomplicated; Z79.899 Other long term (current) drug therapy | CPT/HCPCS: 76705 ==

== ENCOUNTER → 2019-06-04 | Outpatient (CLI) | payer OTHER ==
[2019-06-04 19:15] LABS: Alanine Aminotransfer (ALT/SGP 38 U/L (12-78); Albumin, Blood 3.6 g/dL (3.4-5.0); Albumin/Globulin Ratio 0.8 (0.8-1.8); Alk Phos 217 U/L (50-136); Anion Gap 6 mmol/L (6-16); Aspartate Aminotrans (AST/SGOT 26 U/L (12-37); Bilirubin, Total 0.9 mg/dL (0.1-1.0); Blood Urea Nitrogen 8 mg/dL (8-24); Bun/Creatinine Ratio 8.7 (12.0-20.0); CO2, Blood 25 mmol/L (21-32); Calcium, Blood 8.9 mg/dL (8.5-10.1); Chloride, Blood 103 mmol/L (98-108); Creatinine, Blood 0.92 mg/dL (0.60-1.20); Globulin, Blood 4.6 g/dL (2.2-4.0); Glomerular Filtration Rate >60 (60-); Glucose, Blood 108 mg/dL (70-99); Potassium, Blood 4.3 mmol/L (3.5-5.5); Sodium, Blood 134 mmol/L (136-145); Total Protein, Blood 8.2 g/dL (6.4-8.2)
== END | disposition home or self-care (01) ==
LOC: LAB SHORT 12:17 → LAB 12:17
PROVIDERS: Nurse Practitioner Family
DX: R73.03 Prediabetes (principal)
CPT/HCPCS: 80053

== ENCOUNTER 2019-06-16 00:15 | Day surgery (SDC) | payer OTHER | END 2019-06-16 23:10 | disposition home or self-care (01) | LOC: US 00:15 | DX: K74.60 Unspecified cirrhosis of liver (principal); R18.8 Other ascites | CPT/HCPCS: 76705 ==

== ENCOUNTER 2019-07-04 09:52 | Day surgery (SDC) | payer OTHER | END 2019-07-04 23:52 | disposition home or self-care (01) | LOC: US 09:52 | DX: R18.8 Other ascites (principal); K74.60 Unspecified cirrhosis of liver | CPT/HCPCS: 49083 ==

== ENCOUNTER 2019-07-21 14:25 | Day surgery (SDC) | payer OTHER | END 2019-07-21 22:52 | disposition home or self-care (01) | LOC: US 14:25 | DX: K74.60 Unspecified cirrhosis of liver (principal); R18.8 Other ascites; I10 Essential (primary) hypertension; J45.909 Unspecified asthma, uncomplicated; Z79.899 Other long term (current) drug therapy; Z88.6 Allergy status to analgesic agent | CPT/HCPCS: 49083 ==

== ENCOUNTER 2019-07-24 12:06 | Emergency (ER) | payer OTHER | END 2019-07-24 12:31 | disposition left against medical advice (07) | LOC: ER 12:06 | DX: Z53.21 Procedure and treatment not carried out due to patient leaving prior to being seen by health care provider (principal) ==

== ENCOUNTER 2019-07-25 12:23 | Day surgery (SDC) | payer OTHER | END 2019-07-25 23:20 | disposition home or self-care (01) | LOC: US 12:23 | DX: K74.60 Unspecified cirrhosis of liver (principal); R18.8 Other ascites; Z88.6 Allergy status to analgesic agent; Z79.899 Other long term (current) drug therapy | CPT/HCPCS: 49083 ==

== ENCOUNTER 2019-08-19 08:55 | Day surgery (SDC) | payer OTHER | END 2019-08-19 23:04 | disposition home or self-care (01) | LOC: US 08:55 | DX: K70.31 Alcoholic cirrhosis of liver with ascites (principal); I10 Essential (primary) hypertension; M19.90 Unspecified osteoarthritis, unspecified site; F25.9 Schizoaffective disorder, unspecified; F32.9 Major depressive disorder, single episode, unspecified; F17.210 Nicotine dependence, cigarettes, uncomplicated; Z79.899 Other long term (current) drug therapy | CPT/HCPCS: 49083 ==

== ENCOUNTER 2019-08-26 00:12 | Day surgery (SDC) | payer OTHER | END 2019-08-26 23:16 | disposition home or self-care (01) | LOC: US 00:12 | DX: K70.31 Alcoholic cirrhosis of liver with ascites (principal); F10.188 Alcohol abuse with other alcohol-induced disorder; I10 Essential (primary) hypertension; J45.909 Unspecified asthma, uncomplicated; F25.9 Schizoaffective disorder, unspecified; F32.9 Major depressive disorder, single episode, unspecified; M19.90 Unspecified osteoarthritis, unspecified site; E78.5 Hyperlipidemia, unspecified; F17.210 Nicotine dependence, cigarettes, uncomplicated; Z79.51 Long term (current) use of inhaled steroids; Z79.899 Other long term (current) drug therapy; Z88.6 Allergy status to analgesic agent | CPT/HCPCS: 49083 ==

== ENCOUNTER 2019-09-12 10:11 | Emergency (ER) | payer OTHER ==
[~2019-09-12] VITALS: Ht 170.2 cm; Wt 90.7 kg
[2019-09-12 12:22] LABS: BASOPHILS ABSOLUTE AUTO 0.02 K/mm3 (0.00-0.23); BASOPHILS PERCENT AUTO 0 % (0-2); EOSINOPHILS ABSOLUTE AUTO 0.07 K/mm3 (0.00-0.68); EOSINOPHILS PERCENT AUTO 1 % (0-6); Hematocrit 37.4 % (37.0-53.0); Hemoglobin 11.4 g/dL (13.5-17.5); IMMATURE GRAN ABSOLUTE AUTO 0.07 K/mm3 (0.00-0.10); IMMATURE GRAN PERCENT AUTO 1 % (0-1); LYMPHOCYTES ABSOLUTE AUTO 0.68 K/mm3 (0.84-5.20); LYMPHOCYTES PERCENT AUTO 12 % (21-46); MONOCYTES ABSOLUTE AUTO 0.65 K/mm3 (0.16-1.47); MONOCYTES PERCENT AUTO 12 % (4-13); Mean Corpuscular HGB 22.9 pg (26.0-34.0); Mean Corpuscular HGB Conc 30.5 g/dL (31.5-36.5); Mean Corpuscular Volume 75 fL (80-100); Mean Platelet Volume 9.7 fL (9.1-12.4); NEUTROPHILS PERCENT AUTO 73 % (41-73); Platelet Count 63 K/mm3 (150-400); RDW Coefficient Variation 19.7 % (11.7-14.2); RDW Standard Deviation 50.4 fL (35.1-46.3); Red Blood Cell Count 4.98 M/mm3 (4.30-5.90); White Blood Cell Count 5.49 K/mm3 (4.00-11.30)
[2019-09-12 12:40] LABS: International Normalized Ratio 1.1; Prothrombin Time Results 11.6 Sec (9.7-11.5)
[2019-09-12 12:48] LABS: Alanine Aminotransfer (ALT/SGP 24 U/L (12-78); Albumin, Blood 2.8 g/dL (3.4-5.0); Albumin/Globulin Ratio 0.6 (0.8-1.8); Alk Phos 263 U/L (50-136); Anion Gap 6 mmol/L (6-16); Aspartate Aminotrans (AST/SGOT 34 U/L (12-37); Bilirubin, Total 1.2 mg/dL (0.1-1.0); Blood Urea Nitrogen 5 mg/dL (8-24); Bun/Creatinine Ratio 6.7 (12.0-20.0); CO2, Blood 26 mmol/L (21-32); Calcium, Blood 8.3 mg/dL (8.5-10.1); Chloride, Blood 105 mmol/L (98-108); Creatinine, Blood 0.75 mg/dL (0.60-1.20); Globulin, Blood 4.9 g/dL (2.2-4.0); Glomerular Filtration Rate >60 (60-); Glucose, Blood 86 mg/dL (70-99); Potassium, Blood 3.2 mmol/L (3.5-5.5); Sodium, Blood 137 mmol/L (136-145); Total Protein, Blood 7.7 g/dL (6.4-8.2)
== END 2019-09-12 16:02 | disposition home or self-care (01) ==
LOC: ER 10:11
PROVIDERS: Physician Assistant
DX: K74.60 Unspecified cirrhosis of liver (principal); R18.8 Other ascites; K72.90 Hepatic failure, unspecified without coma; I10 Essential (primary) hypertension; E78.5 Hyperlipidemia, unspecified; F32.9 Major depressive disorder, single episode, unspecified; G43.909 Migraine, unspecified, not intractable, without status migrainosus; F17.210 Nicotine dependence, cigarettes, uncomplicated; Z88.6 Allergy status to analgesic agent; Z79.899 Other long term (current) drug therapy
CPT/HCPCS: 36415; 49083; 80053; 85025; 85610; 99284-25

== ENCOUNTER 2019-09-26 14:51 | Day surgery (SDC) | payer OTHER | END 2019-10-17 23:24 | disposition home or self-care (01) | LOC: US 14:51 | DX: R18.8 Other ascites (principal) | CPT/HCPCS: 49083 ==

== ENCOUNTER 2020-01-13 08:26 | Day surgery (SDC) | payer OTHER | END 2020-01-13 22:39 | disposition home or self-care (01) | LOC: US 08:26 | DX: K74.60 Unspecified cirrhosis of liver (principal); R18.8 Other ascites | CPT/HCPCS: 76705 ==

== ENCOUNTER 2020-10-04 08:24 | Day surgery (SDC) | payer OTHER, SELFPAY | END 2020-10-04 23:01 | LOC: US 08:24 | DX: K70.31 Alcoholic cirrhosis of liver with ascites (principal); D64.9 Anemia, unspecified; B18.2 Chronic viral hepatitis C; E11.65 Type 2 diabetes mellitus with hyperglycemia; I10 Essential (primary) hypertension; E66.9 Obesity, unspecified; K21.9 Gastro-esophageal reflux disease without esophagitis; F17.210 Nicotine dependence, cigarettes, uncomplicated; Z79.899 Other long term (current) drug therapy; Z88.6 Allergy status to analgesic agent; Z68.33 Body mass index [BMI] 33.0-33.9, adult | CPT/HCPCS: 76705 ==

== ENCOUNTER 2020-11-17 10:26 | Day surgery (SDC) | payer OTHER, SELFPAY ==
[~2020-11-17] VITALS: Ht 170.2 cm; Wt 99.9 kg
== END 2020-11-17 13:49 | disposition home or self-care (01) ==
LOC: ORSCSDS 10:26
PROVIDERS: Internal Medicine Gastroenterology
PROC: 0DB78ZX Excision of Stomach, Pylorus, Via Natural or Artificial Opening Endoscopic, Diagnostic (ICD-10-PCS; principal; 2020-11-17 11:45)
PROC: 0DBM8ZX Excision of Descending Colon, Via Natural or Artificial Opening Endoscopic, Diagnostic (ICD-10-PCS; principal; 2020-11-17 11:45)
PROC: 06L38CZ Occlusion of Esophageal Vein with Extraluminal Device, Via Natural or Artificial Opening Endoscopic (ICD-10-PCS; principal; 2020-11-17 11:45)
PROC: 0DBN8ZX Excision of Sigmoid Colon, Via Natural or Artificial Opening Endoscopic, Diagnostic (ICD-10-PCS; principal; 2020-11-17 11:45)
DX: D50.9 Iron deficiency anemia, unspecified (principal); D12.4 Benign neoplasm of descending colon; D12.5 Benign neoplasm of sigmoid colon; K70.30 Alcoholic cirrhosis of liver without ascites; B18.2 Chronic viral hepatitis C; I85.00 Esophageal varices without bleeding; K64.8 Other hemorrhoids; K76.6 Portal hypertension; K31.89 Other diseases of stomach and duodenum; I10 Essential (primary) hypertension; F17.210 Nicotine dependence, cigarettes, uncomplicated; Z79.899 Other long term (current) drug therapy; E66.9 Obesity, unspecified; Z68.34 Body mass index [BMI] 34.0-34.9, adult
CPT/HCPCS: 82947; 88305; 88342; J1815; J2704; J7120

== ENCOUNTER → 2021-10-03 | Outpatient (CLI) | payer OTHER ==
[2021-10-05 09:29] LABS: Stool Occult Bld Immuno 1 Positive (NEGATIVE)
== END | disposition home or self-care (01) ==
LOC: LAB SHORT 22:00
PROVIDERS: Family Medicine
DX: Z12.11 Encounter for screening for malignant neoplasm of colon (principal); D50.9 Iron deficiency anemia, unspecified
CPT/HCPCS: 82274

== ENCOUNTER 2021-12-08 12:15 | Day surgery (SDC) | payer OTHER ==
[~2021-12-08] VITALS: Ht 170.2 cm; Wt 98.1 kg
[~2021-12-08 12:15] MED LIST changes: +ALBU90OI INH; +BUDESONIDE-FO10.2 G2 INH; +MIRTAZAPINE7.5 M1 PO; +ZOCOR20 MG PO
[2021-12-08] MEDS ORDERED: METF500 (12:33)
[2021-12-08] MEDS ORDERED: BUSP5 (12:34)
[2021-12-08] MEDS ORDERED: NADO20 (12:34)
--- NOTE | 2021-12-08 13:48 | NUR ---
12/08/[address] SINGH COLONOSCOPY WILL BE CANCELLED BECAUSE PATIENT WAS BANDED FOR VARICES.
--- NOTE | 2021-12-08 15:34 | NUR ---
12/08/21 1534 DALIA DUBON UPON REACHING STEP DOWN PT WAS CONTINUING TO WAKE UP BUT MOVING/THRASHING AND PULLED HIS IV OUT ACCIDNTALLY. DR PACE WAS AT BEDSIDE AND ANOTHER RN. GAUZE AND COBAN PRESSURE BANDAGE APPLIED TO STOP BLEEDING. CATHETER TIP INTACT AND IV SITE WAS WNL. PT HAD NO COMPLAINT OF PAIN.
== END 2021-12-08 15:01 | disposition home or self-care (01) ==
LOC: ORSCSDS 12:15
PROVIDERS: Student in an Organized Health Care Education/Training Program
PROC: 0DB98ZX Excision of Duodenum, Via Natural or Artificial Opening Endoscopic, Diagnostic (ICD-10-PCS; principal; 2021-12-08 15:00)
PROC: 06L38CZ Occlusion of Esophageal Vein with Extraluminal Device, Via Natural or Artificial Opening Endoscopic (ICD-10-PCS; principal; 2021-12-08 15:00)
PROC: 0DBH8ZX Excision of Cecum, Via Natural or Artificial Opening Endoscopic, Diagnostic (ICD-10-PCS; principal; 2021-12-08 15:00)
PROC: 0DBK8ZX Excision of Ascending Colon, Via Natural or Artificial Opening Endoscopic, Diagnostic (ICD-10-PCS; principal; 2021-12-08 15:00)
PROC: 0DB78ZX Excision of Stomach, Pylorus, Via Natural or Artificial Opening Endoscopic, Diagnostic (ICD-10-PCS; principal; 2021-12-08 15:00)
PROC: 0DBN8ZX Excision of Sigmoid Colon, Via Natural or Artificial Opening Endoscopic, Diagnostic (ICD-10-PCS; principal; 2021-12-08 15:00)
PROC: 0DBL8ZX Excision of Transverse Colon, Via Natural or Artificial Opening Endoscopic, Diagnostic (ICD-10-PCS; principal; 2021-12-08 15:00)
PROC: 0DBM8ZX Excision of Descending Colon, Via Natural or Artificial Opening Endoscopic, Diagnostic (ICD-10-PCS; principal; 2021-12-08 15:00)
DX: K74.60 Unspecified cirrhosis of liver (principal); I85.00 Esophageal varices without bleeding; K76.6 Portal hypertension; K31.89 Other diseases of stomach and duodenum; Z12.11 Encounter for screening for malignant neoplasm of colon; Z86.010 Personal history of colon polyps; K29.80 Duodenitis without bleeding; D12.4 Benign neoplasm of descending colon; D12.3 Benign neoplasm of transverse colon; D12.0 Benign neoplasm of cecum; K64.8 Other hemorrhoids; E11.9 Type 2 diabetes mellitus without complications; I10 Essential (primary) hypertension; F17.210 Nicotine dependence, cigarettes, uncomplicated; J44.9 Chronic obstructive pulmonary disease, unspecified; F41.8 Other specified anxiety disorders; Z79.899 Other long term (current) drug therapy; E66.9 Obesity, unspecified; Z68.33 Body mass index [BMI] 33.0-33.9, adult
CPT/HCPCS: 82947; 88305; 88342; J0330; J0461; J2405; J2704; J7120

== ENCOUNTER 2022-02-08 16:02 | Inpatient (IN) | payer OTHER ==
[~2022-02-08] VITALS: Ht 170.2 cm; Wt 91.8 kg
[~2022-02-08 16:02] MED LIST changes: +BUME2 PO; +BUSP5; +METF500; +NADO20 PO; +OMEP20ER PO; +SUCR1 PO
[2022-02-08 16:39] LABS: BASOPHILS ABSOLUTE AUTO 0.02 K/mm3 (0.00-0.23); BASOPHILS PERCENT AUTO 0 % (0-2); EOSINOPHILS ABSOLUTE AUTO 0.11 K/mm3 (0.00-0.68); EOSINOPHILS PERCENT AUTO 2 % (0-6); Hematocrit 18.9 % (37.0-53.0); IMMATURE GRAN ABSOLUTE AUTO 0.26 K/mm3 (0.00-0.10); IMMATURE GRAN PERCENT AUTO 4 % (0-1); LYMPHOCYTES PERCENT AUTO 12 % (21-46); MONOCYTES ABSOLUTE AUTO 1.05 K/mm3 (0.16-1.47); MONOCYTES PERCENT AUTO 16 % (4-13); Mean Corpuscular HGB 20.1 pg (26.0-34.0); Mean Corpuscular Volume 72 fL (80-100); Mean Platelet Volume 8.9 fL (9.1-12.4); NEUTROPHILS ABSOLUTE AUTO 4.52 K/mm3 (1.96-9.15); NEUTROPHILS PERCENT AUTO 67 % (41-73); NRBC ABSOLUTE 0.05 K/mm3 (0.00-0.02); NRBC Auto 0.7 /100 WBC (0.0-0.2); Platelet Count 139 K/mm3 (150-400); RDW Coefficient Variation 16.3 % (11.7-14.2); RDW Standard Deviation 42.5 fL (35.1-46.3); Red Blood Cell Count 2.64 M/mm3 (4.30-5.90); White Blood Cell Count 6.76 K/mm3 (4.00-11.30)
[2022-02-08 16:51] LABS: Hemoglobin 5.3 g/dL (13.5-17.5); International Normalized Ratio 1.09; Prothrombin Time Results 11.4 Sec (9.7-11.5)
[2022-02-08 17:02] LABS: Albumin, Blood 2.8 g/dL (3.4-5.0); Albumin/Globulin Ratio 0.6 (0.8-1.8); Bilirubin, Total 0.6 mg/dL (0.1-1.0); Bun/Creatinine Ratio 13.4 (12.0-20.0); Calcium, Blood 8.1 mg/dL (8.5-10.1); Creatinine, Blood 0.52 mg/dL (0.60-1.20); Globulin, Blood 4.5 g/dL (2.2-4.0); Potassium, Blood 4.3 mmol/L (3.5-5.5); Total Protein, Blood 7.3 g/dL (6.4-8.2)
[2022-02-08 19:09] LABS: Source, Urine Clean Catch
[2022-02-08 19:13] LABS: Appearance, Urine Clear (Clear); Bilirubin, Urine Neg (Neg); Blood, Urine 2+ (Neg); Color, Urine Yellow (P-Yellow); Glucose Qualitative, Urine Neg (Neg); Ketones, Urine 1+ (Neg); Leukocyte Esterase, Urine Neg (Neg); Nitrite, Urine Neg (Neg); Protein, Urine Neg (Neg); Urobilinogen, Urine NORM (Normal)
[2022-02-08 19:43] LABS: Bacteria Mod /hpf; Squamous Epithelial Cells Few /hpf (Few); White Blood Cells, Urine 0-2 /hpf (0-5)
[2022-02-09 01:27] LABS: C DIFFICILE DNA NEGATIVE (Negative)
[2022-02-09 03:11] LABS: BASOPHILS ABSOLUTE AUTO 0.01 K/mm3 (0.00-0.23); BASOPHILS PERCENT AUTO 0 % (0-2); EOSINOPHILS ABSOLUTE AUTO 0.03 K/mm3 (0.00-0.68); EOSINOPHILS PERCENT AUTO 1 % (0-6); Hematocrit 21.4 % (37.0-53.0); Hemoglobin 6.6 g/dL (13.5-17.5); IMMATURE GRAN PERCENT AUTO 2 % (0-1); LYMPHOCYTES ABSOLUTE AUTO 0.37 K/mm3 (0.84-5.20); LYMPHOCYTES PERCENT AUTO 8 % (21-46); MONOCYTES ABSOLUTE AUTO 0.72 K/mm3 (0.16-1.47); MONOCYTES PERCENT AUTO 15 % (4-13); Mean Corpuscular HGB 21.9 pg (26.0-34.0); Mean Corpuscular HGB Conc 30.8 g/dL (31.5-36.5); Mean Corpuscular Volume 71 fL (80-100); Mean Platelet Volume 8.9 fL (9.1-12.4); NEUTROPHILS ABSOLUTE AUTO 3.63 K/mm3 (1.96-9.15); NEUTROPHILS PERCENT AUTO 75 % (41-73); NRBC ABSOLUTE 0.03 K/mm3 (0.00-0.02); NRBC Auto 0.6 /100 WBC (0.0-0.2); Platelet Count 111 K/mm3 (150-400); RDW Coefficient Variation 17.1 % (11.7-14.2); RDW Standard Deviation 44.1 fL (35.1-46.3); Red Blood Cell Count 3.01 M/mm3 (4.30-5.90); White Blood Cell Count 4.86 K/mm3 (4.00-11.30)
[2022-02-09 03:24] LABS: Bun/Creatinine Ratio 13.3 (12.0-20.0); Calcium, Blood 8.4 mg/dL (8.5-10.1); Creatinine, Blood 0.6 mg/dL (0.60-1.20); Potassium, Blood 3.5 mmol/L (3.5-5.5)
--- NOTE | 2022-02-09 05:34 | NUR ---
NOC SHIFT SUMMARY PT ORIENTED X3, UNSURE OF DATE. VSS PER PT TREND ON RA. 2ND UNIT OF PRBC FINISHED @ 0024, PT TOLERATED WELL. SR/1ST DEG/BBB ON CONTINOUS TELEMETRY MONITORING. NO COMPLAINTS OF PAIN. CONDOM CATHETER IN PLACE DRAINING CLEAR YELLOW URINE. GROIN AND BUTTOCKS RASH NOTED - PT STATES HE "SITS ALOT" - ENCOURAGING PT TO SHIFT WEIGHT AND EDUCATED ON RISK OF PRESSURE INJURY. BLISTERS/BUMPS NOTED ON BACK - PT STATES THEY ARE CYSTS. PT INCONTINENT OF STOOL. BRIEF IN PLACE AND CHANGED PRN. ABD MARKEDLY DISTENDED, BELLY BUTTON HERNIATION NOTED. TACHYPNEIC AT TIMES ESPECIALLY WHEN EXERTED OR LAYING FLAT. PT NPO SINCE 0000 FOR POTENTIAL PARACENTESIS THIS AM. NOTIFIED DR. MASCORRO THIS AM OF HGB OF 6.6 S/P 2 UNITS PRBC. ADDITIONAL UNIT ORDERED PER .
[2022-02-09 09:27] LABS: SARS-Cov-2 (COVID-19) PCR, MMC NEGATIVE (NEGATIVE)
--- NOTE | 2022-02-09 10:13 | NUR ---
UPDATE PT LEFT UNIT FOR PROCEDURE AT 1000 VIA [facility]. PT SLID TO [facility] VIA SLIDE SHEET AND 4 STAFF MEMBERS. PT ON RA DURING TRANSFER.
--- NOTE | 2022-02-09 10:42 | NUR ---
update pt arrived from procedure at 1043 via gurney. resp rate less tachypneic upon arrival, work of breathing apears less severe. pt on ra upon arrival. pt reports "easier to breath."
[2022-02-09 11:01] LABS: Albumin, Body Fluid 1.5 g/dL
[2022-02-09 11:13] LABS: Protein, Body Fluid 3.3 g/dL
[2022-02-09 11:18] LABS: Lactate Dehydrogenase, Body Fl 73 U/L
[2022-02-09 11:29] LABS: Automated BF WBC Count 0.192 K/mm3 (0-999); Body Fluid WBC Count 192 /mm3 (0-999)
[2022-02-09 11:52] LABS: pH, Body Fluid 7.9
[2022-02-09 12:12] LABS: RBC Count, Body Fluid 296 /mm3 (0-0)
[2022-02-09 12:19] LABS: Color, Body Fluid Yellow (None-Yellow); Total Cell Count, Body Fluid 100
--- NOTE | 2022-02-09 18:15 | NUR ---
UPDATE PT SIGNIFICANT OTHER CALLED AND WAS CALLED BACK BY THIS RN AT 1646. SIGNIFICANT OTHER, MARIA M, EXPRESSED CONCERNS OF PT RETURNING HOME STATING "THERE CANNOT BE ANY ALCOHOL IN THIS HOUSE." THIS RN ASKED MARIA M IF SHE FELT SAFE IF PT WERE TO RETURN HOME, MARIA M ANSWERED "YES." MARIA M ALSO INFORMED THIS RN THAT PT WAS NOT TRUTHFUL ABOUT AMOUNT OF ALCOHOL HE DRINKS DAILY. WHEN ASKED. MARIA M REPLIED "HE DRINKS FOUR 25 OZ BEERS A DAY." SHE ALSO STATED THAT ON THE WAY TO THE HOSPITAL, PT REQUESTED TO STOP AT THE STORE. PT "PURCHASED A RICARDO'S HARD LEMONADE AND DRANK 2 SIPS OFF OF IT." MARIA M ALSO STATED, "HE HAS NOT BEEN TAKING ALL OF HIS MEDS LIKE HE SAYS." MARIA M INFORMED THIS RN THAT SHE WAS TIRED WHEN THEY CAME TO THE ER AND FORGOT TO TELL THE NURSE THESE THINGS.
--- NOTE | 2022-02-09 18:31 | NUR ---
SHIFT SUMMARY PT A/O 3-4 AND COOPERATIVE OF CARE. PT SBP ELEVATED RANGING 140-150'S THROUGHOUT SHIFT. PT RR REMAINED IN THE 20'S THROUGHOUT SHIFT. OTHER VSS THROUGHOUT SHIFT WITH O2 SATS >95% ON RA. PT HAD PARACENTESIS DONE TODAY, REMOVED 3L. PT RECIEVED ALBUMIN PER OREDER AFTER PROCEDURE. PT RECIEVED 1 UNIT OF PRBC AT BEGIINGING OF SHIFT. NO REPORT OF CHEST PAIN/PRESSURE THOUGHOUT SHIFT. PT RECIEVED Q 4 CIWA SCORING 2,6, AND 3. PT SIGNIFICANT OTHER CONTACTED THIS RN WITH SOME CONCERNS, SEE PREVIOUS NOTES. PT ABLE TO USE BEDPAN FOR BM'S, PT ABLE TO ROLL SELF SIDE TO SIDE. PT REPORTED SOME RELIEF FROM PARACENTESIS, PT WORK OF BREATHING VISUALLY IMPROVED. CONDOM CATH IN PLACE DRAINING TO GRAVITY, DARK TARA URINE.
--- NOTE | 2022-02-10 01:03 | NUR ---
PT UPDATE PT PLACED ON 2L VIA NC D/T SATS 87-89% ON RA. PT CONTINUES TO APPEAR LETHARGIC AND SLUR WORDS FOLLOWING DOSE OF ATIVAN FOR CIWA OF >8. PT DOES NOT OPEN EYES SPONTANEOUSLY AND RESPONDS TO QUESTIONS WITH EYES CLOSED. CAPNOGRAPHY SHOWS ETOC2 OF 36. SATS 95% ON 2 L O2 VIA NC. LARGE BLACK/DARK GREEN LOOSE BM. CLEANED BY STAFF, SOILED LINEN AND ATTENDS CHANGED. PT FORGETS HE HAS ON CONDOM CATH, STATED HE NEEDED TO URINATE, REMINDED BY THIS RN TO GO AHEAD AND URINATE NEEDED. PT URINATES THROUGH CONDOM CATH. URINE APPEARS ORANGE, POSSIBLE PINKISH-TINGE. PT GRUNTS WHILE BREATHING, STATES IT'S NORMAL FOR HIM. COUGHS OCCASIONALLY. LSCTA.
[2022-02-10 04:37] LABS: BASOPHILS ABSOLUTE AUTO 0.02 K/mm3 (0.00-0.23); BASOPHILS PERCENT AUTO 0 % (0-2); EOSINOPHILS ABSOLUTE AUTO 0.01 K/mm3 (0.00-0.68); EOSINOPHILS PERCENT AUTO 0 % (0-6); Hematocrit 27.4 % (37.0-53.0); Hemoglobin 8.6 g/dL (13.5-17.5); IMMATURE GRAN PERCENT AUTO 1 % (0-1); LYMPHOCYTES ABSOLUTE AUTO 0.41 K/mm3 (0.84-5.20); LYMPHOCYTES PERCENT AUTO 5 % (21-46); MONOCYTES ABSOLUTE AUTO 1.09 K/mm3 (0.16-1.47); MONOCYTES PERCENT AUTO 12 % (4-13); Mean Corpuscular HGB 23.1 pg (26.0-34.0); Mean Corpuscular HGB Conc 31.4 g/dL (31.5-36.5); Mean Corpuscular Volume 74 fL (80-100); Mean Platelet Volume 9.3 fL (9.1-12.4); NEUTROPHILS ABSOLUTE AUTO 7.32 K/mm3 (1.96-9.15); NEUTROPHILS PERCENT AUTO 82 % (41-73); NRBC ABSOLUTE 0.03 K/mm3 (0.00-0.02); NRBC Auto 0.3 /100 WBC (0.0-0.2); Platelet Count 111 K/mm3 (150-400); RDW Coefficient Variation 18.1 % (11.7-14.2); RDW Standard Deviation 47.9 fL (35.1-46.3); Red Blood Cell Count 3.72 M/mm3 (4.30-5.90); White Blood Cell Count 8.95 K/mm3 (4.00-11.30)
[2022-02-10 04:58] LABS: Albumin/Globulin Ratio 0.7 (0.8-1.8); Bilirubin, Total 1.3 mg/dL (0.1-1.0); Bun/Creatinine Ratio 12.2 (12.0-20.0); Calcium, Blood 8.8 mg/dL (8.5-10.1); Creatinine, Blood 0.58 mg/dL (0.60-1.20); Globulin, Blood 4.2 g/dL (2.2-4.0); Potassium, Blood 3.4 mmol/L (3.5-5.5); Total Protein, Blood 7.2 g/dL (6.4-8.2)
--- NOTE | 2022-02-10 07:29 | NUR ---
SHIFT SUMMARY PT AOX4, BECOMES LETHARGIC DURING DOSE OF ATIVAN 1.5 MG FOR CIWA. PT REMAINS LETHARGIC T/O SHIFT, UNABLE TO ACCURATELY ASSESS CIWAS D/T LETHARGY. HR T/O SHIFT INCREASES FROM 80'S-90'S SR TO LOW 100'S, HTN WITH SBP 150'S-160'S. DENIES PAIN T/O SHIFT FOLLOWING INITIAL LOW ABD PAIN THAT RESOLVED. MULTIPLE DARK GREEN-BLACKISH STOOLS LOOSE-GELATINOUS. URINE APPEARS PINKISH-TARA. 300 MLS OF PINKISH-RED LIQUID EMESIS AT START OF SHIFT. PT HAD BEEN DRINKING CRANBERRY JUICE W/LACTULOSE. THIS RN NOTIFIED HOSPITALIST OF PT CBG INCREASED AND HIGH IN 200'S. ORDER FOR MEDIUM SLIDING SCALE TO BE STARTED. THIS RN HOLDS D/T PT EMESIS AND LACK OF INTAKE W/LETHARGY AND NAUSEA. HGB IS IMPROVED THIS AM. PT CLIMBS OUT OF BED TO GET TO COMMODE, ASSISTED BACK TO BED AFTER URINATING. PT IS UNSTEADY. BACK TO SLEEP ONCE IN BED. IV'S SALINE LOCKED.
--- NOTE | 2022-02-10 17:48 | NUR ---
SHIFT SUMMARY PT APPEARED LETHARGIC THIS AM DURING SHIFT CHANGE. DURING MORNING ASSESSMENT, PT WOULD AWAKEN BRIEFLY TO ANSWER QUESTIONS AND WOULD BEGIN SLEEPING SHORTLY AFTER. PT WAS ABLE TO TAKE TO STAY AWAKE TO TAKE MORNING MEDS. PT VSS THROUGHOUT SHIFT WITH O2 SATS >95% ON RA. PT/OT CAME BY TO SEE PT, PT WAS STILL SLEEPING AND SAID THEY WOULD COME BACK LATER. INSTRUCUTED THIS RN TO HAVE PT/OT EVAL THE PT TODAY, PT/OT NOTIFIED. PHYSICAL THERAPY VISITED PT AND CLEARED HIM STATING "PT IS AT IS BASELINE." NOTIFIED AND PT CHANGED TO MEDICAL STATUS WITHOUT TELE. PT GLUCOSE LEVELS FLUCTUATED DURING SHIFT, NO COVERAGE GIVEN DUE TO PT NOT EATING HIS MEALS. PT WAS UP TO BEDSIDE COMMODE MULTIPLE TIMES, LIQUID STOOLS. NO REPORT OF CHEST PAIN/PRESSURE THROUGHOUT SHIFT.
--- NOTE | 2022-02-10 20:00 | NUR ---
PT'S CALLED. SHE HAS CONCERNS ABOUT PT BEING DC'D AND NOT BEING EVALUATED BY A GI SPECIALIST. SHE HAD BEEN EXPECTING A CALL FROM ATTENDING DOCTOR TODAY REGARDING DIAGNOSES LEADING TO THE PT RECIEVING BLOOD. STATES THAT SHE DOES NOT WANT PT TO COME HOME AND "BLEED OUT." SHE STS THAT DR CEDEÑO IS PT'S CURRENT GI DOCTOR AND WOULD LIKE HIM TO SEE PT.
--- NOTE | 2022-02-10 20:16 | NUR ---
WHEN PT WAS TAKING EVENING MEDS HE ASPIRATED AND HAD A VERY HARSH COUGH. MEDICATION DID NOT COME UP. PT STATED "WENT DOWN THE WRONG PIPE." PT REPORTS NOT HAVING THIS ISSUE BEFORE.SATS WERE 85% THEN WENT ABOVE 90% ON ROOM AIR. THIS NURSE STAYED WITH PT UNTIL HE FELT BETTER. WAITED A FEW MINUITES TO GIVE REST OF MEDS. WILL CONTINUE TO MONITOR.
[2022-02-11 04:42] LABS: Hematocrit 25.9 % (37.0-53.0); Hemoglobin 7.8 g/dL (13.5-17.5); Mean Corpuscular HGB Conc 30.1 g/dL (31.5-36.5); Mean Corpuscular Volume 76 fL (80-100); Mean Platelet Volume 9.4 fL (9.1-12.4); NRBC ABSOLUTE 0.02 K/mm3 (0.00-0.02); NRBC Auto 0.3 /100 WBC (0.0-0.2); Platelet Count 102 K/mm3 (150-400); RDW Standard Deviation 51.2 fL (35.1-46.3); Red Blood Cell Count 3.39 M/mm3 (4.30-5.90); White Blood Cell Count 7.47 K/mm3 (4.00-11.30)
[2022-02-11 05:06] LABS: Albumin, Blood 2.8 g/dL (3.4-5.0); Anion Gap 7 mmol/L (6-16); Blood Urea Nitrogen 10 mg/dL (8-24); Bun/Creatinine Ratio 14.3 (12.0-20.0); CO2, Blood 26 mmol/L (21-32); Calcium, Blood 8.7 mg/dL (8.5-10.1); Chloride, Blood 99 mmol/L (98-108); Glomerular Filtration Rate 112 (60-); Glucose, Blood 124 mg/dL (70-99); Potassium, Blood 3.2 mmol/L (3.5-5.5); Sodium, Blood 132 mmol/L (136-145)
--- NOTE | 2022-02-11 06:42 | NUR ---
SHIFT SUMMARY PT IS ALERT AND ORIENTED. THERE HAVE BEEN NO ACUTE CHANGES T/O THE NIGHT. VITALS ARE STABLE AND PT HAS BEEN ON ROOM AIR MOST OF THE NIGHT WITH SATS ABOVE 95%. PT DID "CHOKE" ON SOME WATER WITH MEDS AROUND 2100 AND DESATED TO MID 80'S BUT QUICKLY WENT BACK ABOVE 90%, RT PUT HIM ON 2L NC BUT WAS 100% SO WAS TAKEN OFF OXYGEN. PT IS ABLE TO GET UP TO BATHROOM WITH ASSIST. BED ALARM IS ACTIVE DUE TO HX OF FALLS. PT DENIES CHEST PAIN OR SOB. CALL LIGHT IS WITHIN REACH.
[2022-02-11] MEDS ORDERED: B-1100 M1 PO (10:36)
[2022-02-11] MEDS ORDERED: MULVITA PO (10:37)
--- NOTE | 2022-02-11 10:53 | NUR ---
UPDATE PT ALERT AND ORIENTED. VS STABLE. DC INSTRUCTIONS PROVIDED TO PT. TWO IVS REMOVED AND INTACT. PT EDUCATED ON MEDICATIONS. ALL QUESTIONS ANSWERED. PT AWAITING RIDE
== END 2022-02-11 11:06 | disposition home health service (06) | DRG 432 ==
LOC: ER 16:02 → PCU 19:29
PROVIDERS: Emergency Medicine; Internal Medicine; Physician Assistant; ADMIT Internal Medicine
PROC: HZ2ZZZZ Detoxification Services for Substance Abuse Treatment (ICD-10-PCS; principal; 2022-02-08)
PROC: 30233N1 Transfusion of Nonautologous Red Blood Cells into Peripheral Vein, Percutaneous Approach (ICD-10-PCS; 2022-02-08)
PROC: 0W9G3ZZ Drainage of Peritoneal Cavity, Percutaneous Approach (ICD-10-PCS; 2022-02-09)
DX: K70.31 Alcoholic cirrhosis of liver with ascites (principal); K72.00 Acute and subacute hepatic failure without coma; E87.1 Hypo-osmolality and hyponatremia; F10.239 Alcohol dependence with withdrawal, unspecified; K76.6 Portal hypertension; E72.20 Disorder of urea cycle metabolism, unspecified; D64.9 Anemia, unspecified; K31.89 Other diseases of stomach and duodenum; G43.909 Migraine, unspecified, not intractable, without status migrainosus; B18.2 Chronic viral hepatitis C; J45.20 Mild intermittent asthma, uncomplicated; E87.6 Hypokalemia; Z20.822 Contact with and (suspected) exposure to COVID-19; Y90.6 Blood alcohol level of 120-199 mg/100 ml; F25.9 Schizoaffective disorder, unspecified; E78.5 Hyperlipidemia, unspecified; F32.9 Major depressive disorder, single episode, unspecified; I10 Essential (primary) hypertension; F17.210 Nicotine dependence, cigarettes, uncomplicated; D69.6 Thrombocytopenia, unspecified; E11.9 Type 2 diabetes mellitus without complications; Z98.890 Other specified postprocedural states; Z79.899 Other long term (current) drug therapy; Z88.8 Allergy status to other drugs, medicaments and biological substances
CPT/HCPCS: 36415; 36430; 49083; 70450; 71045; 72125; 76705; 80048; 80053; 80069; 81001; 82042; 82140; 82272; 82947; 83615; 83690; 83880; 83986; 84157; 85025; 85027; 85610; 86850; 86900; 86901; 86923; 87086; 87493; 89051; 93005; 93010; 94640; 94664; 94760; 96374; 97162; 97530; 99285-25; A9270; G0480; J1940; J2060; J2405; J7030; P9016; P9046; U0004

== ENCOUNTER 2022-04-05 12:49 | Inpatient (IN) | payer OTHER ==
[~2022-04-05] VITALS: Ht 170.2 cm; Wt 95.5 kg
[~2022-04-05 12:49] MED LIST changes: +B-1100 M1 PO; +MULVITA PO
[2022-04-05 19:32] LABS: BASOPHILS ABSOLUTE AUTO 0.01 K/mm3 (0.00-0.23); BASOPHILS PERCENT AUTO 0 % (0-2); EOSINOPHILS ABSOLUTE AUTO 0.05 K/mm3 (0.00-0.68); EOSINOPHILS PERCENT AUTO 1 % (0-6); IMMATURE GRAN ABSOLUTE AUTO 0.25 K/mm3 (0.00-0.10); IMMATURE GRAN PERCENT AUTO 3 % (0-1); LYMPHOCYTES ABSOLUTE AUTO 0.57 K/mm3 (0.84-5.20); LYMPHOCYTES PERCENT AUTO 6 % (21-46); MONOCYTES ABSOLUTE AUTO 0.85 K/mm3 (0.16-1.47); MONOCYTES PERCENT AUTO 9 % (4-13); Mean Corpuscular HGB 18.1 pg (26.0-34.0); Mean Corpuscular HGB Conc 27.2 g/dL (31.5-36.5); Mean Corpuscular Volume 67 fL (80-100); Mean Platelet Volume 10.7 fL (9.1-12.4); NEUTROPHILS ABSOLUTE AUTO 7.44 K/mm3 (1.96-9.15); NEUTROPHILS PERCENT AUTO 81 % (41-73); NRBC ABSOLUTE 0.05 K/mm3 (0.00-0.02); NRBC Auto 0.5 /100 WBC (0.0-0.2); Platelet Count 166 K/mm3 (150-400); RDW Coefficient Variation 19.4 % (11.7-14.2); RDW Standard Deviation 45.6 fL (35.1-46.3); Red Blood Cell Count 2.59 M/mm3 (4.30-5.90); White Blood Cell Count 9.17 K/mm3 (4.00-11.30)
[2022-04-05 19:33] LABS: Hematocrit 17.3 % (37.0-53.0); Hemoglobin 4.7 g/dL (13.5-17.5)
[2022-04-05 19:45] LABS: Albumin, Blood 2.7 g/dL (3.4-5.0); Albumin/Globulin Ratio 0.6 (0.8-1.8); Bilirubin, Total 0.5 mg/dL (0.1-1.0); Bun/Creatinine Ratio 24.9 (12.0-20.0); Calcium, Blood 8.9 mg/dL (8.5-10.1); Creatinine, Blood 0.72 mg/dL (0.60-1.20); Globulin, Blood 4.8 g/dL (2.2-4.0); Potassium, Blood 4.1 mmol/L (3.5-5.5); Total Protein, Blood 7.5 g/dL (6.4-8.2)
[2022-04-05 19:53] LABS: International Normalized Ratio 1.07; Prothrombin Time Results 11.2 Sec (9.7-11.5)
[2022-04-06] MEDS ORDERED: METF500 PO (03:27)
[2022-04-06 04:39] LABS: BASOPHILS ABSOLUTE AUTO 0.02 K/mm3 (0.00-0.23); BASOPHILS PERCENT AUTO 0 % (0-2); EOSINOPHILS ABSOLUTE AUTO 0.11 K/mm3 (0.00-0.68); EOSINOPHILS PERCENT AUTO 1 % (0-6); Hematocrit 20.3 % (37.0-53.0); Hemoglobin 6.1 g/dL (13.5-17.5); IMMATURE GRAN ABSOLUTE AUTO 0.27 K/mm3 (0.00-0.10); IMMATURE GRAN PERCENT AUTO 3 % (0-1); LYMPHOCYTES ABSOLUTE AUTO 0.56 K/mm3 (0.84-5.20); LYMPHOCYTES PERCENT AUTO 6 % (21-46); MONOCYTES ABSOLUTE AUTO 1.05 K/mm3 (0.16-1.47); MONOCYTES PERCENT AUTO 11 % (4-13); Mean Corpuscular HGB 20.5 pg (26.0-34.0); Mean Corpuscular Volume 68 fL (80-100); Mean Platelet Volume 9.2 fL (9.1-12.4); NEUTROPHILS ABSOLUTE AUTO 7.91 K/mm3 (1.96-9.15); NEUTROPHILS PERCENT AUTO 80 % (41-73); NRBC ABSOLUTE 0.08 K/mm3 (0.00-0.02); NRBC Auto 0.8 /100 WBC (0.0-0.2); Platelet Count 125 K/mm3 (150-400); RDW Coefficient Variation 22.4 % (11.7-14.2); RDW Standard Deviation 53.5 fL (35.1-46.3); Red Blood Cell Count 2.97 M/mm3 (4.30-5.90); White Blood Cell Count 9.92 K/mm3 (4.00-11.30)
[2022-04-06 05:03] LABS: Albumin, Blood 2.6 g/dL (3.4-5.0); Albumin/Globulin Ratio 0.6 (0.8-1.8); Bilirubin, Total 1.4 mg/dL (0.1-1.0); Bun/Creatinine Ratio 25.4 (12.0-20.0); Calcium, Blood 8.5 mg/dL (8.5-10.1); Creatinine, Blood 0.67 mg/dL (0.60-1.20); Globulin, Blood 4.7 g/dL (2.2-4.0); Magnesium, Blood 2.1 mg/dL (1.6-2.4); Total Protein, Blood 7.3 g/dL (6.4-8.2)
[2022-04-06 06:29] LABS: Thyroid Stimulating Hormone 3.45 uIU/mL (0.360-4.800)
[2022-04-06 09:56] LABS: Automated BF WBC Count 0.213 K/mm3 (0-999); Body Fluid WBC Count 213 /mm3 (0-999)
[2022-04-06 10:14] LABS: Protein, Body Fluid 2.9 g/dL
[2022-04-06 10:17] LABS: Hematocrit 23.4 % (37.0-53.0); Hemoglobin 7.1 g/dL (13.5-17.5)
[2022-04-06 10:18] LABS: Albumin, Body Fluid 1.2 g/dL
[2022-04-06 10:47] LABS: RBC Count, Body Fluid 615 /mm3 (0-0)
[2022-04-06 10:49] LABS: Appearance, Body Fluid Clear (Clear); Color, Body Fluid Yellow (None-Yellow)
[2022-04-06 11:03] LABS: Total Cell Count, Body Fluid 100
[2022-04-06 11:12] LABS: Base Excess Venous 2.8 mmol/L; Bicarbonate Venous 26.6 mmol/L (24.0-30.0); pH Blood Venous 7.47 (7.34-7.37)
[2022-04-06 19:16] LABS: Hematocrit 22.8 % (37.0-53.0); Hemoglobin 6.8 g/dL (13.5-17.5)
[2022-04-07 02:36] LABS: Hematocrit 23.7 % (37.0-53.0); Hemoglobin 7.3 g/dL (13.5-17.5)
[2022-04-07 05:52] LABS: BASOPHILS ABSOLUTE AUTO 0.03 K/mm3 (0.00-0.23); BASOPHILS PERCENT AUTO 1 % (0-2); EOSINOPHILS PERCENT AUTO 2 % (0-6); Hematocrit 23.9 % (37.0-53.0); Hemoglobin 7.3 g/dL (13.5-17.5); IMMATURE GRAN ABSOLUTE AUTO 0.21 K/mm3 (0.00-0.10); IMMATURE GRAN PERCENT AUTO 3 % (0-1); LYMPHOCYTES ABSOLUTE AUTO 0.48 K/mm3 (0.84-5.20); LYMPHOCYTES PERCENT AUTO 7 % (21-46); MONOCYTES ABSOLUTE AUTO 1.02 K/mm3 (0.16-1.47); MONOCYTES PERCENT AUTO 16 % (4-13); Mean Corpuscular HGB 22.6 pg (26.0-34.0); Mean Corpuscular HGB Conc 30.5 g/dL (31.5-36.5); Mean Platelet Volume 9.7 fL (9.1-12.4); NEUTROPHILS ABSOLUTE AUTO 4.65 K/mm3 (1.96-9.15); NEUTROPHILS PERCENT AUTO 72 % (41-73); NRBC ABSOLUTE 0.08 K/mm3 (0.00-0.02); NRBC Auto 1.2 /100 WBC (0.0-0.2); Platelet Count 112 K/mm3 (150-400); RDW Coefficient Variation 23.2 % (11.7-14.2); RDW Standard Deviation 59.9 fL (35.1-46.3); Red Blood Cell Count 3.23 M/mm3 (4.30-5.90); White Blood Cell Count 6.49 K/mm3 (4.00-11.30)
[2022-04-07 05:56] LABS: Mean Corpuscular Volume 74 fL (80-100)
[2022-04-07 06:26] LABS: Albumin, Blood 2.4 g/dL (3.4-5.0); Albumin/Globulin Ratio 0.6 (0.8-1.8); Bilirubin, Total 0.9 mg/dL (0.1-1.0); Bun/Creatinine Ratio 17.1 (12.0-20.0); Calcium, Blood 8.1 mg/dL (8.5-10.1); Creatinine, Blood 0.7 mg/dL (0.60-1.20); Globulin, Blood 4.2 g/dL (2.2-4.0); Potassium, Blood 3.7 mmol/L (3.5-5.5); Total Protein, Blood 6.6 g/dL (6.4-8.2)
[2022-04-07 13:47] LABS: Hematocrit 26.3 % (37.0-53.0); Hemoglobin 7.8 g/dL (13.5-17.5)
[2022-04-07 21:13] LABS: Hematocrit 26.4 % (37.0-53.0); Hemoglobin 7.9 g/dL (13.5-17.5)
[2022-04-08 03:56] LABS: BASOPHILS ABSOLUTE AUTO 0.03 K/mm3 (0.00-0.23); BASOPHILS PERCENT AUTO 0 % (0-2); EOSINOPHILS ABSOLUTE AUTO 0.17 K/mm3 (0.00-0.68); EOSINOPHILS PERCENT AUTO 2 % (0-6); Hematocrit 24.7 % (37.0-53.0); Hemoglobin 7.3 g/dL (13.5-17.5); IMMATURE GRAN ABSOLUTE AUTO 0.18 K/mm3 (0.00-0.10); IMMATURE GRAN PERCENT AUTO 2 % (0-1); LYMPHOCYTES ABSOLUTE AUTO 0.63 K/mm3 (0.84-5.20); LYMPHOCYTES PERCENT AUTO 8 % (21-46); MONOCYTES ABSOLUTE AUTO 0.98 K/mm3 (0.16-1.47); MONOCYTES PERCENT AUTO 12 % (4-13); Mean Corpuscular HGB 22.3 pg (26.0-34.0); Mean Corpuscular HGB Conc 29.6 g/dL (31.5-36.5); Mean Corpuscular Volume 76 fL (80-100); Mean Platelet Volume 9.4 fL (9.1-12.4); NEUTROPHILS ABSOLUTE AUTO 6.07 K/mm3 (1.96-9.15); NEUTROPHILS PERCENT AUTO 75 % (41-73); Platelet Count 106 K/mm3 (150-400); RDW Coefficient Variation 24.1 % (11.7-14.2); Red Blood Cell Count 3.27 M/mm3 (4.30-5.90); White Blood Cell Count 8.06 K/mm3 (4.00-11.30)
[2022-04-08 04:19] LABS: Albumin, Blood 2.4 g/dL (3.4-5.0); Albumin/Globulin Ratio 0.6 (0.8-1.8); Bilirubin, Total 0.7 mg/dL (0.1-1.0); Bun/Creatinine Ratio 14.9 (12.0-20.0); Calcium, Blood 8.3 mg/dL (8.5-10.1); Creatinine, Blood 0.67 mg/dL (0.60-1.20); Globulin, Blood 4.2 g/dL (2.2-4.0); Potassium, Blood 4.2 mmol/L (3.5-5.5); Total Protein, Blood 6.6 g/dL (6.4-8.2)
[2022-04-08 12:53] LABS: Hematocrit 24.7 % (37.0-53.0); Hemoglobin 7.2 g/dL (13.5-17.5)
[2022-04-08 17:03] LABS: Hematocrit 22.9 % (37.0-53.0); Hemoglobin 6.8 g/dL (13.5-17.5)
[2022-04-09 04:05] LABS: BASOPHILS ABSOLUTE AUTO 0.04 K/mm3 (0.00-0.23); BASOPHILS PERCENT AUTO 1 % (0-2); EOSINOPHILS ABSOLUTE AUTO 0.24 K/mm3 (0.00-0.68); EOSINOPHILS PERCENT AUTO 3 % (0-6); Hematocrit 24.6 % (37.0-53.0); Hemoglobin 7.3 g/dL (13.5-17.5); IMMATURE GRAN ABSOLUTE AUTO 0.18 K/mm3 (0.00-0.10); IMMATURE GRAN PERCENT AUTO 2 % (0-1); LYMPHOCYTES ABSOLUTE AUTO 0.66 K/mm3 (0.84-5.20); LYMPHOCYTES PERCENT AUTO 9 % (21-46); MONOCYTES ABSOLUTE AUTO 0.95 K/mm3 (0.16-1.47); MONOCYTES PERCENT AUTO 13 % (4-13); Mean Corpuscular HGB 22.5 pg (26.0-34.0); Mean Corpuscular HGB Conc 29.7 g/dL (31.5-36.5); Mean Corpuscular Volume 76 fL (80-100); Mean Platelet Volume 9.4 fL (9.1-12.4); NEUTROPHILS ABSOLUTE AUTO 5.37 K/mm3 (1.96-9.15); NEUTROPHILS PERCENT AUTO 72 % (41-73); Platelet Count 99 K/mm3 (150-400); RDW Coefficient Variation 25.1 % (11.7-14.2); RDW Standard Deviation 65.1 fL (35.1-46.3); Red Blood Cell Count 3.25 M/mm3 (4.30-5.90); White Blood Cell Count 7.44 K/mm3 (4.00-11.30)
[2022-04-09 04:18] LABS: Bun/Creatinine Ratio 6.7 (12.0-20.0); Calcium, Blood 8.2 mg/dL (8.5-10.1); Creatinine, Blood 0.6 mg/dL (0.60-1.20)
[2022-04-09 18:00] LABS: Hematocrit 26.8 % (37.0-53.0); Hemoglobin 7.7 g/dL (13.5-17.5)
[2022-04-10 00:52] LABS: Hematocrit 26.3 % (37.0-53.0); Hemoglobin 7.7 g/dL (13.5-17.5)
[2022-04-10 05:26] LABS: BASOPHILS ABSOLUTE AUTO 0.04 K/mm3 (0.00-0.23); BASOPHILS PERCENT AUTO 1 % (0-2); EOSINOPHILS ABSOLUTE AUTO 0.24 K/mm3 (0.00-0.68); EOSINOPHILS PERCENT AUTO 4 % (0-6); Hemoglobin 7.4 g/dL (13.5-17.5); IMMATURE GRAN ABSOLUTE AUTO 0.09 K/mm3 (0.00-0.10); IMMATURE GRAN PERCENT AUTO 2 % (0-1); LYMPHOCYTES ABSOLUTE AUTO 0.65 K/mm3 (0.84-5.20); LYMPHOCYTES PERCENT AUTO 11 % (21-46); MONOCYTES ABSOLUTE AUTO 0.82 K/mm3 (0.16-1.47); MONOCYTES PERCENT AUTO 14 % (4-13); Mean Corpuscular HGB 22.4 pg (26.0-34.0); Mean Corpuscular HGB Conc 29.6 g/dL (31.5-36.5); Mean Corpuscular Volume 76 fL (80-100); Mean Platelet Volume 9.7 fL (9.1-12.4); NEUTROPHILS ABSOLUTE AUTO 4.11 K/mm3 (1.96-9.15); NEUTROPHILS PERCENT AUTO 69 % (41-73); Platelet Count 95 K/mm3 (150-400); RDW Coefficient Variation 25.8 % (11.7-14.2); RDW Standard Deviation 67.3 fL (35.1-46.3); White Blood Cell Count 5.95 K/mm3 (4.00-11.30)
[2022-04-10 05:52] LABS: Albumin, Blood 2.4 g/dL (3.4-5.0); Albumin/Globulin Ratio 0.6 (0.8-1.8); Bilirubin, Total 0.9 mg/dL (0.1-1.0); Bun/Creatinine Ratio 6.2 (12.0-20.0); Calcium, Blood 8.6 mg/dL (8.5-10.1); Creatinine, Blood 0.65 mg/dL (0.60-1.20); Globulin, Blood 3.9 g/dL (2.2-4.0); Potassium, Blood 3.3 mmol/L (3.5-5.5); Total Protein, Blood 6.3 g/dL (6.4-8.2)
[2022-04-10 12:46] LABS: Hematocrit 25.5 % (37.0-53.0); Hemoglobin 7.7 g/dL (13.5-17.5)
[2022-04-10 18:38] LABS: Hematocrit 25.7 % (37.0-53.0); Hemoglobin 7.7 g/dL (13.5-17.5)
[2022-04-11 07:44] LABS: Bun/Creatinine Ratio 6.9 (12.0-20.0); Calcium, Blood 8.7 mg/dL (8.5-10.1); Creatinine, Blood 0.72 mg/dL (0.60-1.20); Potassium, Blood 3.5 mmol/L (3.5-5.5)
[2022-04-12 04:43] LABS: Hematocrit 26.6 % (37.0-53.0)
[2022-04-12 05:08] LABS: Bun/Creatinine Ratio 7.2 (12.0-20.0); Calcium, Blood 8.9 mg/dL (8.5-10.1); Creatinine, Blood 0.83 mg/dL (0.60-1.20)
[2022-04-12] MEDS ORDERED: PANT40 PO (15:10)
[2022-04-12] MEDS ORDERED: SUCR1 PO (15:12)
[2022-04-12] MEDS ORDERED: VISBIOME 112.51 EACH PO (15:12)
== END 2022-04-12 16:00 | disposition home health service (06) | DRG 432 ==
LOC: ER 12:49 → PCU 20:10 → ICUW 20:10 → ERHOLD 20:10 → PCU 04-06 02:54 → ICUW 04-06 14:48 → MEDS 04-11 18:36
PROVIDERS: Emergency Medicine; Family Medicine; Hospitalist; Internal Medicine; Student in an Organized Health Care Education/Training Program; ADMIT Internal Medicine
PROC: 30233N1 Transfusion of Nonautologous Red Blood Cells into Peripheral Vein, Percutaneous Approach (ICD-10-PCS; 2022-04-05)
PROC: 0W9G3ZZ Drainage of Peritoneal Cavity, Percutaneous Approach (ICD-10-PCS; principal; 2022-04-06)
PROC: 5A1223Z Performance of Cardiac Pacing, Continuous (ICD-10-PCS; 2022-04-06)
PROC: 06L38CZ Occlusion of Esophageal Vein with Extraluminal Device, Via Natural or Artificial Opening Endoscopic (ICD-10-PCS; 2022-04-07)
PROC: 0W9G3ZZ Drainage of Peritoneal Cavity, Percutaneous Approach (ICD-10-PCS; 2022-04-09)
DX: K70.31 Alcoholic cirrhosis of liver with ascites (principal); G93.41 Metabolic encephalopathy; I85.10 Secondary esophageal varices without bleeding; F10.239 Alcohol dependence with withdrawal, unspecified; E87.1 Hypo-osmolality and hyponatremia; E72.20 Disorder of urea cycle metabolism, unspecified; K76.6 Portal hypertension; Z66 Do not resuscitate; E87.6 Hypokalemia; E83.42 Hypomagnesemia; I49.5 Sick sinus syndrome; R06.00 Dyspnea, unspecified; D64.9 Anemia, unspecified; K31.89 Other diseases of stomach and duodenum; G43.909 Migraine, unspecified, not intractable, without status migrainosus; B18.2 Chronic viral hepatitis C; F25.9 Schizoaffective disorder, unspecified; E11.9 Type 2 diabetes mellitus without complications; F32.A Depression, unspecified; E78.5 Hyperlipidemia, unspecified; I10 Essential (primary) hypertension; J45.20 Mild intermittent asthma, uncomplicated; F17.210 Nicotine dependence, cigarettes, uncomplicated; Z98.890 Other specified postprocedural states; Z79.899 Other long term (current) drug therapy; Z88.6 Allergy status to analgesic agent
CPT/HCPCS: 33210; 36415; 36430; 49083; 71045; 80048; 80053; 82042; 82140; 82803; 83735; 83880; 84157; 84443; 85014; 85018; 85025; 85610; 85730; 86850; 86900; 86901; 86923; 87070; 87205; 88108; 88305; 89051; 92523; 92610; 93005; 93010; 93306; 94640; 94660; 94664; 94762; 96374; 96375; 97110; 97116; 97162; 97166; 97535; 99152; 99153; 99285-25; A9270; C1751; C1894; C9113; J0171; J0690; J0696; J1430; J1580; J1644; J1940; J2060; J2250; J2354; J2370; J2405; J2704; J3010; J3360; J3475; J3480; J7030; J7040; J7050; J7120; P9016; P9041; Q9967

== ENCOUNTER 2022-05-11 10:42 | Day surgery (SDC) | payer OTHER ==
[~2022-05-11] VITALS: Ht 170.2 cm; Wt 94.0 kg
[~2022-05-11 10:42] MED LIST changes: +METF500 PO; +PANT40 PO; +VISBIOME 112.51 EACH PO
--- NOTE | 2022-05-11 12:29 | NUR ---
05/11/22 1229 Korin Solorzano IV DISCONTINUED WNL.
== END 2022-05-11 12:29 | disposition home or self-care (01) ==
LOC: ORSCSDS 10:42
PROVIDERS: Student in an Organized Health Care Education/Training Program
PROC: 0DB98ZX Excision of Duodenum, Via Natural or Artificial Opening Endoscopic, Diagnostic (ICD-10-PCS; principal; 2022-05-11 12:00)
DX: K74.60 Unspecified cirrhosis of liver (principal); I85.00 Esophageal varices without bleeding; Z95.0 Presence of cardiac pacemaker; K76.6 Portal hypertension; I10 Essential (primary) hypertension; B19.20 Unspecified viral hepatitis C without hepatic coma; E11.9 Type 2 diabetes mellitus without complications; J45.909 Unspecified asthma, uncomplicated; Z79.899 Other long term (current) drug therapy; F17.210 Nicotine dependence, cigarettes, uncomplicated
CPT/HCPCS: 82947; 88305; J2704; J7120

== ENCOUNTER 2022-06-25 10:56 | Emergency (ER) | payer OTHER ==
[~2022-06-25] VITALS: Ht 170.2 cm; Wt 95.2 kg
[2022-06-25 11:40] LABS: Source, Urine Clean Catch
[2022-06-25 11:40] LABS: Base Excess Venous 0.7 mmol/L; Bicarbonate Venous 24.6 mmol/L (24.0-30.0); PCO2 Venous 42.4 mmHg (38-42); pH Blood Venous 7.39 (7.34-7.37)
[2022-06-25 11:47] LABS: BASOPHILS ABSOLUTE AUTO 0.08 K/mm3 (0.00-0.23); BASOPHILS PERCENT AUTO 1 % (0-2); EOSINOPHILS ABSOLUTE AUTO 0.14 K/mm3 (0.00-0.68); EOSINOPHILS PERCENT AUTO 2 % (0-6); Hematocrit 29.6 % (37.0-53.0); Hemoglobin 8.1 g/dL (13.5-17.5); IMMATURE GRAN PERCENT AUTO 3 % (0-1); LYMPHOCYTES PERCENT AUTO 9 % (21-46); MONOCYTES ABSOLUTE AUTO 0.86 K/mm3 (0.16-1.47); MONOCYTES PERCENT AUTO 11 % (4-13); Mean Corpuscular HGB 17.4 pg (26.0-34.0); Mean Corpuscular HGB Conc 27.4 g/dL (31.5-36.5); Mean Corpuscular Volume 64 fL (80-100); Mean Platelet Volume 10.4 fL (9.1-12.4); NEUTROPHILS ABSOLUTE AUTO 5.78 K/mm3 (1.96-9.15); NEUTROPHILS PERCENT AUTO 75 % (41-73); Platelet Count 166 K/mm3 (150-400); RDW Coefficient Variation 19.1 % (11.7-14.2); RDW Standard Deviation 40.7 fL (35.1-46.3); Red Blood Cell Count 4.66 M/mm3 (4.30-5.90); White Blood Cell Count 7.76 K/mm3 (4.00-11.30)
[2022-06-25 11:48] LABS: Appearance, Urine Clear (Clear); Bilirubin, Urine Neg (Neg); Blood, Urine Neg (Neg); Color, Urine Yellow (P-Yellow); Glucose Qualitative, Urine 4+ (Neg); Ketones, Urine Neg (Neg); Leukocyte Esterase, Urine Neg (Neg); Nitrite, Urine Neg (Neg); Protein, Urine Neg (Neg); Urobilinogen, Urine NORM (Normal)
[2022-06-25 12:04] LABS: Albumin/Globulin Ratio 0.5 (0.8-1.8); Bilirubin, Total 0.6 mg/dL (0.1-1.0); Bun/Creatinine Ratio 7.5 (12.0-20.0); Calcium, Blood 9.3 mg/dL (8.5-10.1); Creatinine, Blood 0.8 mg/dL (0.60-1.20); Globulin, Blood 5.5 g/dL (2.2-4.0); Potassium, Blood 3.1 mmol/L (3.5-5.5); Total Protein, Blood 8.5 g/dL (6.4-8.2)
== END 2022-06-25 15:17 | disposition home or self-care (01) ==
LOC: ER 10:56
PROVIDERS: Physician Assistant
DX: E11.65 Type 2 diabetes mellitus with hyperglycemia (principal); E87.6 Hypokalemia; D64.9 Anemia, unspecified; E78.5 Hyperlipidemia, unspecified; I10 Essential (primary) hypertension; F17.210 Nicotine dependence, cigarettes, uncomplicated; Z88.6 Allergy status to analgesic agent; Z79.899 Other long term (current) drug therapy; Z79.84 Long term (current) use of oral hypoglycemic drugs
CPT/HCPCS: 36415; 80053; 81003; 82803; 82947; 83036; 83930; 85025; 99283; J1815; J7030

== ENCOUNTER → 2022-08-17 | Outpatient (CLI) | payer OTHER ==
[2022-08-17 15:44] LABS: Albumin, Blood 2.5 g/dL (3.4-5.0); Anion Gap 10 mmol/L (6-16); Blood Urea Nitrogen 7 mg/dL (8-24); Bun/Creatinine Ratio 9.5 (12.0-20.0); CO2, Blood 20 mmol/L (21-32); Calcium, Blood 8.3 mg/dL (8.5-10.1); Chloride, Blood 102 mmol/L (98-108); Creatinine, Blood 0.73 mg/dL (0.60-1.20); Glomerular Filtration Rate 110 (60-); Glucose, Blood 374 mg/dL (70-99); Phosphorus, Blood 3.5 mg/dL (2.5-4.9); Potassium, Blood 3.6 mmol/L (3.5-5.5); Sodium, Blood 132 mmol/L (136-145)
== END | disposition home or self-care (01) ==
LOC: LAB 13:24 → LAB SHORT 13:24
PROVIDERS: Internal Medicine Nephrology
DX: N18.2 Chronic kidney disease, stage 2 (mild) (principal)
CPT/HCPCS: 36415; 80069

== ENCOUNTER 2022-10-03 09:14 | Day surgery (SDC) | payer OTHER ==
[~2022-10-03] VITALS: Ht 170.2 cm; Wt 105.7 kg
[2022-10-03] MEDS ORDERED: TRIJARDY XR 101 EAC1 (09:50)
--- NOTE | 2022-10-03 10:09 | NUR ---
10/03/[address] BUCHANAN NOTIFIED OF PTS CHEM BG 310 PRE PROCEDURE.
== END 2022-10-03 10:20 | disposition home or self-care (01) ==
LOC: ORSCSDS 09:14
DX: I85.00 Esophageal varices without bleeding (principal); Z53.9 Procedure and treatment not carried out, unspecified reason
CPT/HCPCS: 82947; J2704; J7120

== ENCOUNTER 2022-10-11 08:42 | Day surgery (SDC) | payer OTHER ==
[~2022-10-11 08:42] MED LIST changes: +TRIJARDY XR 101 EAC1
[2022-10-11 10:06] LABS: Automated BF WBC Count 0.333 K/mm3 (0-999)
[2022-10-11 10:30] LABS: Protein, Body Fluid 2.8 g/dL
[2022-10-11 10:36] LABS: Body Fluid WBC Count 333 /mm3 (0-999)
[2022-10-11 11:01] LABS: RBC Count, Body Fluid 62 /mm3 (0-0)
[2022-10-11 12:11] LABS: Total Cell Count, Body Fluid 100
[2022-10-11 12:16] LABS: Appearance, Body Fluid Clear (Clear); Color, Body Fluid Yellow (None-Yellow)
== END 2022-10-11 22:57 | disposition home or self-care (01) ==
LOC: US 08:42
PROVIDERS: Student in an Organized Health Care Education/Training Program
DX: K70.31 Alcoholic cirrhosis of liver with ascites (principal)
CPT/HCPCS: 49083; 82042; 84157; 89051

== ENCOUNTER 2023-02-22 10:52 | Day surgery (SDC) | payer OTHER ==
[2023-02-22 14:35] VITALS: BP 131/60
[2023-02-22 14:56] VITALS: BP 131/95
[2023-02-22 15:57] VITALS: BP 126/73
[2023-02-22 16:21] VITALS: BP 130/67
[2023-02-22 17:21] VITALS: BP 134/79
[2023-02-22 17:32] VITALS: BP 136/82
== END 2023-02-22 17:35 | disposition home or self-care (01) ==
LOC: ATC 10:52
DX: D50.9 Iron deficiency anemia, unspecified (principal); I10 Essential (primary) hypertension; E11.9 Type 2 diabetes mellitus without complications; F17.210 Nicotine dependence, cigarettes, uncomplicated; Z79.899 Other long term (current) drug therapy
CPT/HCPCS: 36430; 86850; 86900; 86901; 86923; J7050; P9016

== ENCOUNTER → 2023-04-15 | Outpatient (CLI) | payer OTHER ==
[2023-04-17 10:31] LABS: Stool Occult Bld Immuno 1 Positive (NEGATIVE)
== END | disposition home or self-care (01) ==
LOC: LAB SHORT 15:03 → LAB 15:03
PROVIDERS: Family Medicine
DX: D64.9 Anemia, unspecified (principal)
CPT/HCPCS: G0328

== ENCOUNTER 2023-06-07 01:58 | Day surgery (SDC) | payer OTHER ==
[2023-06-07 14:59] VITALS: BP 110/70
[2023-06-07 15:16] VITALS: BP 115/65
[2023-06-07 16:22] VITALS: BP 132/73
[2023-06-07 16:48] VITALS: BP 128/75
[2023-06-07 18:00] VITALS: BP 130/78
== END 2023-06-07 18:02 | disposition home or self-care (01) ==
LOC: ATC 01:58
DX: D50.9 Iron deficiency anemia, unspecified (principal); K74.60 Unspecified cirrhosis of liver; J45.909 Unspecified asthma, uncomplicated; I10 Essential (primary) hypertension; E11.9 Type 2 diabetes mellitus without complications; F25.9 Schizoaffective disorder, unspecified; F17.200 Nicotine dependence, unspecified, uncomplicated
CPT/HCPCS: 36415; 36430; 86850; 86900; 86901; 86923; J7050; P9016

== ENCOUNTER 2023-08-02 01:59 | Day surgery (SDC) | payer OTHER ==
[2023-08-02 08:21] VITALS: BP 127/84
[2023-08-02 08:38] VITALS: BP 122/72
[2023-08-02 09:51] VITALS: BP 132/72
--- NOTE | 2023-08-02 09:53 | NUR ---
LUNGS REMAIN CLEAR THROUGHOUT BUT MORE DIM IN THE BASES THAN SUPERIOR
[2023-08-02 10:55] VITALS: BP 121/96
[2023-08-02 11:48] VITALS: BP 140/90
== END 2023-08-02 11:50 | disposition home or self-care (01) ==
LOC: ATC 01:59
DX: D64.9 Anemia, unspecified (principal); D69.6 Thrombocytopenia, unspecified; K74.60 Unspecified cirrhosis of liver; J45.909 Unspecified asthma, uncomplicated; I10 Essential (primary) hypertension; F25.9 Schizoaffective disorder, unspecified
CPT/HCPCS: 36415; 36430; 86850; 86900; 86901; 86923; J7050; P9016